=== PATIENT | female | born 1995 | race Caucasian/White ===

== ENCOUNTER → 2016-08-24 | Outpatient (CLI) | payer OTHER ==
--- NOTE | 2016-08-24 11:07 | USB ---
Reason for exam: follow-up at short interval from prior study. History: Family history of breast cancer in aunt. Physical Findings: Nurse Summary: all soft, nodular, movable, pt complains left breast lump x 2 years. Brown discharge x 10 years, doctor aware per patient (nurse ts). US Breast LT Left breast ultrasound including all four quadrants, the retroareolar region and axilla demonstrates a duct vessel at 9 o'clock and a 0.4 x 0.4 x 0.3cm oval, lobular, mixed, vascular lesion too small to characterize at 10 o'clock. These results were verbally communicated with the patient and result sheet given to the patient on 08/24/16. ASSESSMENT: Benign, BI-RAD 2 RECOMMENDATION: Routine screening mammogram of both breasts at age 38. Manage patient on a clinical basis.
== END | disposition home or self-care (01) ==
LOC: RADUSWWP 09:28
PROVIDERS: ATTEND Surgery
DX: N63 Unspecified lump in breast (principal)

== ENCOUNTER → 2016-09-19 | Outpatient (CLI) | payer OTHER ==
--- NOTE | 2016-09-19 14:45 | US ---
EXAMINATION TYPE: US gallbladder DATE OF EXAM: 09/19/2016 2:30 PM COMPARISON: NONE CLINICAL HISTORY: Cholecystitis K80.0. Epigastric pain with nausea EXAM MEASUREMENTS: Liver Length: 14.5 cm Gallbladder Wall: 0.2 cm CBD: 0.3 cm Right Kidney: 10.4 x 3.8 x 5.7 cm Pancreas: wnl Liver: wnl Gallbladder: wnl Evidence for sonographic Vick's sign: No CBD: wnl Right Kidney: wnl No abnormality visualized Results called to Tamica at 's office at time of exam IMPRESSION: No distinct abnormality seen.
== END | disposition home or self-care (01) ==
LOC: RADUSWWP 14:14
PROVIDERS: ATTEND Family Medicine
DX: K81.9 Cholecystitis, unspecified (principal)
CPT/HCPCS: 76705

== ENCOUNTER → 2016-10-12 | Outpatient (CLI) | payer OTHER ==
--- NOTE | 2016-10-12 12:28 | CT ---
EXAMINATION TYPE: CT abdomen pelvis wo con DATE OF EXAM: 10/12/2016 11:28 AM COMPARISON: 01/09/2013 HISTORY: 20-year-old female Patient complains of epigastric pain and nausea. Patient has a history o f IBS. CT DLP: 845 mGycm. Automated exposure control for dose reduction was used. TECHNIQUE: Contiguous axial scanning of the abdomen and pelvis without IV contrast. Coronal and sagit ashley reconstructions performed. FINDINGS: The heart is normal size without pericardial effusion. Lung bases are clear without pleural effusion. There is some residual contrast seen within the lower esophagus that could reflect gastroesophageal r eflux. Noncontrast appearance of the liver, gallbladder, adrenal glands, kidneys, spleen, and pancreas show no gross abnormality. Stable scattered nonenlarged and borderline enlarged mesenteric lymph nodes measuring up to 6 mm. No dilated small bowel, free fluid, or free air. Normal appendix visualized. Oral contrast has progressed to the cecum. There is moderate stool within the right hemicolon. The l eft hemicolon is relatively nondistended. Bladder is nondistended. Multiple pelvic phleboliths. Uterus and ovaries are visualized. There is que stionable circumferential wall thickening of the distal sigmoid and rectum, refer to axial image 74 a nd coronal image 58. The lack of IV contrast limits assessment. Bones: No osseous destructive process. Degenerative disc disease L5-S1. IMPRESSION: 1. There appears to be circumferential wall thickening at the distal sigmoid and rectum. Correlate f or possible nonspecific colitis. Limited due to lack of IV contrast. 2. Moderate stool within the right hemicolon. 3. Oral contrast seen within the lower esophagus; findings may indicate underlying gastroesophageal reflux disease.
== END | disposition home or self-care (01) ==
LOC: RADCTMAIN 09:29
PROVIDERS: ATTEND Family Medicine
DX: R10.9 Unspecified abdominal pain (principal)
CPT/HCPCS: 74176

== ENCOUNTER → 2017-09-24 | Outpatient (CLI) | payer OTHER ==
[2017-09-24 10:19] LABS: Basophils % (A) 0 %; Eosinophils % (A) 1 %; HGB 11.6 gm/dL (11.4-16.0); Lymphocytes % (A) 29 %; MCH 27.7 pg (25.0-35.0); MCHC 33.2 g/dL (31.0-37.0); MCV 83.5 fL (80.0-100.0); Mean Platelet Volume 6.3; Monocytes # (A) 0.2 k/uL (0-1.0); Monocytes % (A) 3 %; Neutrophils # (A) 4.6 k/uL (1.3-7.7); Neutrophils % (A) 66 %; Platelet Count 368 k/uL (150-450); RDW 12.9 % (11.5-15.5)
[2017-09-24 10:47] LABS: ALT 15 U/L (9-52); AST 17 U/L (14-36); Albumin 3.8 g/dL (3.5-5.0); Alkaline Phosphatase 54 U/L (38-126); Anion Gap 10 mmol/L; Blood Urea Nitrogen 6 mg/dL (7-17); Calcium 9.3 mg/dL (8.4-10.2); Carbon Dioxide 27 mmol/L (22-30); Chloride 105 mmol/L (98-107); Glucose 87 mg/dL (74-99); Potassium 3.9 mmol/L (3.5-5.1); Sodium 142 mmol/L (137-145); Total Bilirubin 0.2 mg/dL (0.2-1.3); Total Protein 6.8 g/dL (6.3-8.2)
[2017-09-24 11:04] LABS: T4, Free (Free Thyroxine) 1.03 ng/dL (0.78-2.19)
[2017-09-24 17:12] LABS: Rheumatoid Factor 5 IU/mL (0-15)
[2017-09-24 17:35] LABS: Vitamin D 25 Hydroxy 6.3 ng/mL (30.0-100.0)
[2017-09-25 13:31] LABS: Vitamin B6 9 ug/L (5-50)
[2017-09-27 12:01] LABS: IgG - CSF 1.2 mg/dL (0.0 - 3.4); IgG/Albumin Index (CSF) 0.46 (0.00 - 0.77); Immunoglobulin G 985 mg/dL (700 - 1600)
== END | disposition home or self-care (01) ==
LOC: LABWHC1 09:48
PROVIDERS: ATTEND Nurse Practitioner Acute Care
DX: E55.9 Vitamin D deficiency, unspecified (principal); R41.3 Other amnesia; R53.83 Other fatigue; F44.6 Conversion disorder with sensory symptom or deficit; H46.9 Unspecified optic neuritis
CPT/HCPCS: 36415; 80053; 82040; 82042; 82306; 82607; 82784; 83873; 83916; 84157; 84207; 84439; 84443; 84481; 85025; 86038; 86431; 87476; 88108; 89050

== ENCOUNTER → 2017-09-27 | Outpatient (CLI) | payer OTHER ==
--- NOTE | 2017-09-30 08:23 | MR ---
EXAMINATION TYPE: MR brain wo/w con DATE OF EXAM: 09/27/2017 HISTORY: Headaches, Pt states MS, Gadavist 8.5 COMPARISON: 03/22/2011 TECHNIQUE: Multiplanar, multisequence images of the brain and brainstem is performed without and with IV contras t, utilizing 8.5 mL intravenous Gadavist gadolinium contrast is administered intravenously. Demyelin ating disease protocol with additional Sagittal Flair sequence performed. FINDINGS: T2 Lesions Present : yes. There remains only 1 4 mm T2/FLAIR hyperintense focus within the centrum semiovale of the right frontal lobe as seen on the prior exam of 2010. No new white matter changes ar e appreciated. Approximate Number of Lesions: 1, right Locations Identified : Supratentorial; deep white matter radiating from the corpus callosum on sagitt al images Size of Reference Lesion(s): 1. 0.4 cm x 0.2 cm x 1.0 cm on axial image 22 and sagittal image 19 Enhancing Lesion(s) Present: No Change from Prior: Stable Diffusion weighted images demonstrate no evidence of a recent infarct or other diffusion abnormality. There is no worrisome extra-axial fluid collection. The ventricular system and cisternal spaces ar e normal in size and appearance. The brain volume is age appropriate. Midline structures demonstrate normal morphology. The craniocervical junction appears within normal limits. Post contrast images demonstrate no abnormal enhancement. The dural venous sinuses appear pa tent. The visualized sinuses are clear and the globes are intact. IMPRESSION: Stable single nonenhancing, nonactive, right frontal supratentorial white matter plaques in this patient with known multiple sclerosis in comparison to exam of 2010.
== END | disposition home or self-care (01) ==
LOC: RADMRIMAIN 18:15
PROVIDERS: ATTEND Psychiatry & Neurology Neurology
DX: G35 Multiple sclerosis (principal); R90.82 White matter disease, unspecified; Z88.2 Allergy status to sulfonamides; Z91.018 Allergy to other foods; Z91.013 Allergy to seafood; Z91.09 Other allergy status, other than to drugs and biological substances
CPT/HCPCS: 70553; A9581

== ENCOUNTER → 2017-10-16 | Outpatient (CLI) | payer OTHER ==
--- NOTE | 2017-10-17 15:41 | MR ---
EXAMINATION TYPE: MR lumbar spine wo con DATE OF EXAM: 10/16/2017 COMPARISON: 02/17/2014 HISTORY: Low back pain TECHNIQUE: Multiplanar, multisequence images of the lumbar spine were acquired. FINDINGS: The lumbar spine demonstrates normal vertebral body heights and alignment. Subcentimeter T1 /T2 hyperintense S1 vertebral body hemangioma seen otherwise the bone marrow signal is within normal limits. Disc desiccation is present at L4-L5 and L5-S1. Conus medullaris is unremarkable terminating at L1. L1-L2: Normal disc appearance without desiccation. No herniation, protrusion or disc bulging. No ca nal stenosis is present. Foramina are patent bilaterally. L2-L3: Normal disc appearance without desiccation. No herniation, protrusion or disc bulging. No ca nal stenosis is present. Foramina are patent bilaterally. L3-L4: Normal disc appearance without desiccation. No herniation, protrusion or disc bulging. No ca nal stenosis is present. Foramina are patent bilaterally. L4-L5: There is a small right paracentral annular tear. Again there is a small broad-based disc bulge without focality. No herniation, neural foraminal stenosis or spinal canal stenosis. L5-S1: There is a similar appearing small right paracentral disc herniation within the lateral recess . This is superimposed upon a broad-based disc bulge and results in mild right neural foraminal narro wing. Left neural foramen and spinal canal are patent. IMPRESSION: 1. Unchanged small right paracentral disc herniation resulting in mild right neural foraminal narrowi ng. 2. No evidence of vertebral body malalignment, height loss, or spinal canal stenosis. 3. Mild degenerative disc disease with annular tear at L4-L5 without focal herniation, neural foramin al stenosis or spinal canal stenosis.
== END | disposition home or self-care (01) ==
LOC: RADMRIMAIN 19:18
PROVIDERS: ATTEND Psychiatry & Neurology Neurology
DX: M99.73 Connective tissue and disc stenosis of intervertebral foramina of lumbar region (principal); M51.26 Other intervertebral disc displacement, lumbar region; M51.36 Other intervertebral disc degeneration, lumbar region; M53.86 Other specified dorsopathies, lumbar region; Z88.2 Allergy status to sulfonamides; Z91.013 Allergy to seafood; Z91.048 Other nonmedicinal substance allergy status; Z91.09 Other allergy status, other than to drugs and biological substances
CPT/HCPCS: 72148

== ENCOUNTER → 2017-11-22 | Outpatient (CLI) | payer OTHER ==
[2017-11-22 14:04] LABS: T4, Free (Free Thyroxine) 1.04 ng/dL (0.78-2.19)
[2017-11-23 11:23] LABS: Vitamin D 25 Hydroxy 39.1 ng/mL (30.0-100.0)
== END | disposition home or self-care (01) ==
LOC: LABWHC1 13:02
PROVIDERS: ATTEND Nurse Practitioner Acute Care
DX: E55.9 Vitamin D deficiency, unspecified (principal); R41.3 Other amnesia
CPT/HCPCS: 36415; 82306; 82607; 84439; 84443; 84481

== ENCOUNTER 2018-03-16 02:11 | Emergency (ER) | payer OTHER ==
[2018-03-16] MEDS ORDERED: SODIUM CHLORIDE 0.9% 1,000 ML IV STA ×2 (02:38→03:45)
[2018-03-16 03:14] LABS: Basophils % (A) 0 %; Eosinophils # (A) 0.1 k/uL (0-0.7); Eosinophils % (A) 1 %; HCT 34.9 % (34.0-46.0); HGB 11.7 gm/dL (11.4-16.0); Lymphocytes % (A) 24 %; MCH 27.4 pg (25.0-35.0); MCHC 33.4 g/dL (31.0-37.0); MCV 82.1 fL (80.0-100.0); Mean Platelet Volume 6.2; Monocytes # (A) 0.4 k/uL (0-1.0); Monocytes % (A) 5 %; Neutrophils # (A) 5.7 k/uL (1.3-7.7); Neutrophils % (A) 68 %; Platelet Count 386 k/uL (150-450); RBC 4.26 m/uL (3.80-5.40); RDW 13.9 % (11.5-15.5); WBC 8.4 k/uL (3.8-10.6)
--- NOTE | 2018-03-16 03:16 | ED ---
Abdominal Pain HPI - General Chief Complaint: Abdominal Pain Stated Complaint: ABD PAIN Time Seen by Provider: 03/16/18 02:29 Source: patient, family, RN notes reviewed Mode of arrival: ambulatory Limitations: no limitations - History of Present Illness Initial Comments: This is a 22-year-old female who presents to the emergency department with chief complaint of abdominal pain and diarrhea. Patient states that one month ago she was started on clindamycin for a tooth infection. She states that since that time she has had diarrhea. She states that then she was given Flagyl to help with the diarrhea but this did not clear it up. She states that her primary care provider I recommended probiotics the patient continued to have diarrhea. Patient states that on Sunday she developed generalized abdominal pain that she describes as cramping in nature. She states that this occurs prior to having a bowel movement and after eating. She states that on Sunday her diarrhea became excessively watery and yellow in color. She states that over the past couple of days she has also had intermittent fevers but has been taking ibuprofen. Denies chest pain or shortness of breath, nausea or vomiting, dizziness or headache. Patient does report a history of IBS. - Related Data Home Medications Medication Instructions Recorded Confirmed Loratadine [Claritin] 10 mg PO DAILY PRN 08/29/15 03/16/18 Levonorgestrel-Ethin Estradiol 1 tab PO DAILY 11/23/15 03/16/18 [[place]ora-28 Tablet] Previous Rx's Medication Instructions Recorded Levothyroxine Sodium [Synthroid] 25 mcg PO DAILY@0630 tab 11/26/15 buPROPion XL [Wellbutrin XL] 150 mg PO DAILY #30 tab.er.24h 11/26/15 busPIRone HCl [Buspar] 15 mg PO BID #60 tab 11/26/15 Cyclobenzaprine [Flexeril] 10 mg PO TID PRN #20 tablet 01/04/16 Allergies Allergy/AdvReac Type Severity Reaction Status Date / Time sulfamethazine Allergy Mild Rash/Hives Verified 03/16/18 02:17 [Sulfamethazine] Sulfa (Sulfonamide Allergy Unknown Verified 03/16/18 02:17 Antibiotics) Review of Systems ROS Statement: Those systems with pertinent positive or pertinent negative responses have been documented in the HPI. ROS Other: All systems not noted in ROS Statement are negative. Past Medical History Past Medical History: GERD/Reflux, Thyroid Disorder Additional Past Medical History / Comment(s): Chronic low back pain, irritable bowel syndrome, gastroesophageal reflux disease, carpal tunnel syndrome, overactive bladder, hypothyroidism. History of Any Multi-Drug Resistant Organisms: None Reported Past Surgical History: No Surgical Hx Reported Additional Past Surgical History / Comment(s): carpal tunnel surg right hand, EGD with Dr. Haji Past Psychological History: ADD/ADHD, Anxiety, Depression Smoking Status: Current some day smoker Past Alcohol Use History: Occasional Past Drug Use History: None Reported - Past Family History Father Additional Family Medical History / Comment(s): Father is alive at age 55 with history of depression, anxiety, bipolar Mother Additional Family Medical History / Comment(s): Mother is alive at age 55 with hypoglycemia and brain aneurysm. Brother(s) Additional Family Medical History / Comment(s): She has 2 brothers and one had successfully committed suicide. Sister(s) Additional Family Medical History / Comment(s): She has 2 sisters with no major medical problems. General Exam - General Exam Comments Initial Comments: General: Awake and alert, well-developed; in no apparent distress. HEENT: Head atraumatic, normocephalic. Pupils are equal, round and reactive to light. Extraocular movements intact. Oropharynx moist without erythema or exudate. Neck: Supple. Normal ROM. Cardiovascular: Regular rate and rhythm. No murmurs, rubs or gallops. Chest symmetrical. Respiratory: Lungs clear to auscultation bilaterally. No wheezes, rales or rhonchi. Normal respiratory effort with no use of accessory muscles. Abdomen: Soft, non-distended. Generalized mild tenderness on palpation. No rigidity, rebound or guarding. Normal bowel sounds in all 4 quadrants. Musculoskeletal: Normal ROM, no tenderness bilateral upper and lower extremities. Ambulating normally. Skin: [place], warm and dry without rashes or lesions. Neurological: Alert and oriented x3. CN II-XII grossly intact. Speech is fluent and answers are appropriate. No focal neuro deficits. Psychiatric: Normal mood and affect. No overt signs of depression or anxiety noted. Limitations: no limitations Course Vital Signs 03/16/18 02:13 Temperature 98.5 F Pulse Rate 82 Respiratory 20 Rate Blood Pressure 110/68 O2 Sat by Pulse 100 Oximetry Medical Decision Making - Medical Decision Making This is a 22-year-old female who presents to the emergency department with chief complaint of abdominal pain and diarrhea. Patient reports diarrhea for approximately one month with a more watery and yellow in appearance of diarrhea starting on Sunday. Patient reports generalized abdominal pain that started on Sunday. She reports intermittent fevers. On physical examination, patient does not appear acutely ill. Abdomen is soft with generalized tenderness on palpation. No localized tenderness. No rigidity or guarding. Vital signs are stable and patient is afebrile. CBC and CMP reveal no acute abnormalities. Testing of stool for Clostridium difficile, stool culture and ova and parasites was ordered, however patient was unable to provide a stool sample. Recommended follow-up with her primary care provider for outpatient stool studies if diarrhea is persistent. UA revealed 4+ ketones. Patient was given 2 L of fluid. No signs of infection. Vital signs have been stable and she is in no acute distress. She will be discharged home at this time. Patient is in agreement with plan and voices understanding. All questions were answered. - Lab Data Result diagrams: 03/16/18 02:54 03/16/18 02:54 Lab Results 03/16/18 03/16/18 03/16/18 Range/Units 02:54 02:54 03:35 WBC 8.4 (3.8-10.6) k/uL RBC 4.26 (3.80-5.40) m/uL Hgb 11.7 (11.4-16.0) gm/dL Hct 34.9 (34.0-46.0) % MCV 82.1 (80.0-100.0) fL MCH 27.4 (25.0-35.0) pg MCHC 33.4 (31.0-37.0) g/dL RDW 13.9 (11.5-15.5) % Plt Count 386 (150-450) k/uL Neutrophils % 68 % Lymphocytes % 24 % Monocytes % 5 % Eosinophils % 1 % Basophils % 0 % Neutrophils # 5.7 (1.3-7.7) k/uL Lymphocytes # 2.0 (1.0-4.8) k/uL Monocytes # 0.4 (0-1.0) k/uL Eosinophils # 0.1 (0-0.7) k/uL Basophils # 0.0 (0-0.2) k/uL Sodium 138 (137-145) mmol/L Potassium 3.8 (3.5-5.1) mmol/L Chloride 105 (98-107) mmol/L Carbon Dioxide 24 (22-30) mmol/L Anion Gap 9 mmol/L BUN 6 L (7-17) mg/dL Creatinine 0.70 (0.52-1.04) mg/dL Est GFR (CKD-EPI)AfAm >90 (>60 ml/min/1.73 sqM) Est GFR (CKD-EPI)NonAf >90 (>60 ml/min/1.73 sqM) Glucose 76 (74-99) mg/dL Calcium 9.0 (8.4-10.2) mg/dL Total Bilirubin 0.3 (0.2-1.3) mg/dL AST 20 (14-36) U/L ALT 33 (9-52) U/L Alkaline Phosphatase 41 (38-126) U/L Total Protein 6.6 (6.3-8.2) g/dL Albumin 3.8 (3.5-5.0) g/dL Amylase 79 (30-110) U/L Lipase 248 (23-300) U/L Urine Color Yellow Urine Appearance Clear (Clear) Urine pH 5.5 (5.0-8.0) Ur Specific [place] 1.018 (1.001-1.035) Urine Protein Trace H (Negative) Urine Glucose (UA) Negative (Negative) Urine Ketones 4+ H (Negative) Urine Blood Small H (Negative) Urine Nitrite Negative (Negative) Urine Bilirubin Negative (Negative) Urine Urobilinogen <2.0 (<2.0) mg/dL Ur Leukocyte Esterase Negative (Negative) Urine RBC 4 (0-5) /hpf Urine WBC 1 (0-5) /hpf Ur Squamous Epith Cells 1 (0-4) /hpf Urine Mucus Many H (None) /hpf Urine HCG, Qual (Not Detectd) 03/16/18 Range/Units 03:35 WBC (3.8-10.6) k/uL RBC (3.80-5.40) m/uL Hgb (11.4-16.0) gm/dL Hct (34.0-46.0) % MCV (80.0-100.0) fL MCH (25.0-35.0) pg MCHC (31.0-37.0) g/dL RDW (11.5-15.5) % Plt Count (150-450) k/uL Neutrophils % % Lymphocytes % % Monocytes % % Eosinophils % % Basophils % % Neutrophils # (1.3-7.7) k/uL Lymphocytes # (1.0-4.8) k/uL Monocytes # (0-1.0) k/uL Eosinophils # (0-0.7) k/uL Basophils # (0-0.2) k/uL Sodium (137-145) mmol/L Potassium (3.5-5.1) mmol/L Chloride (98-107) mmol/L Carbon Dioxide (22-30) mmol/L Anion Gap mmol/L BUN (7-17) mg/dL Creatinine (0.52-1.04) mg/dL Est GFR (CKD-EPI)AfAm (>60 ml/min/1.73 sqM) Est GFR (CKD-EPI)NonAf (>60 ml/min/1.73 sqM) Glucose (74-99) mg/dL Calcium (8.4-10.2) mg/dL Total Bilirubin (0.2-1.3) mg/dL AST (14-36) U/L ALT (9-52) U/L Alkaline Phosphatase (38-126) U/L Total Protein (6.3-8.2) g/dL Albumin (3.5-5.0) g/dL Amylase (30-110) U/L Lipase (23-300) U/L Urine Color Urine Appearance (Clear) Urine pH (5.0-8.0) Ur Specific [place] (1.001-1.035) Urine Protein (Negative) Urine Glucose (UA) (Negative) Urine Ketones (Negative) Urine Blood (Negative) Urine Nitrite (Negative) Urine Bilirubin (Negative) Urine Urobilinogen (<2.0) mg/dL Ur Leukocyte Esterase (Negative) Urine RBC (0-5) /hpf Urine WBC (0-5) /hpf Ur Squamous Epith Cells (0-4) /hpf Urine Mucus (None) /hpf Urine HCG, Qual Not Detected (Not Detectd) Disposition Clinical Impression: Acute diarrhea, Abdominal pain Disposition: HOME SELF-CARE Condition: Good Instructions: Acute Diarrhea (ED), Abdominal Pain (ED) Additional Instructions: If diarrhea persists, please follow-up with your primary care provider for outpatient stool studies. Please follow up with primary care provider within 1- 2 days. Return to emergency department if symptoms should worsen or any concerns arise. Is patient prescribed a controlled substance at d/c from ED?: No Referrals: Eleuterio Alberto DO [Primary Care Provider] - 1-2 days Time of Disposition: 04:07
[2018-03-16 03:18] LABS: ALT 33 U/L (9-52); AST 20 U/L (14-36); Albumin 3.8 g/dL (3.5-5.0); Alkaline Phosphatase 41 U/L (38-126); Amylase 79 U/L (30-110); Anion Gap 9 mmol/L; Blood Urea Nitrogen 6 mg/dL (7-17); Carbon Dioxide 24 mmol/L (22-30); Chloride 105 mmol/L (98-107); Glucose 76 mg/dL (74-99); Lipase 248 U/L (23-300); Potassium 3.8 mmol/L (3.5-5.1); Sodium 138 mmol/L (137-145); Total Bilirubin 0.3 mg/dL (0.2-1.3); Total Protein 6.6 g/dL (6.3-8.2)
[2018-03-16 03:44] LABS: Appearance,Urine Clear (Clear); Bilirubin,Urine Negative (Negative); Blood,Urine Small (Negative); Color,Urine Yellow; Glucose,Urine (UA) Negative (Negative); Ketones,Urine 4+ (Negative); Leukocyte Esterase,Urine Negative (Negative); Mucus,Urine Many /hpf; Nitrite,Urine Negative (Negative); PH, Urine 5.5 (5.0-8.0); Protein,Urine Trace (Negative); RBC,Urine 4 /hpf (0-5); Specific Gravity,Urine 1.018 (1.001-1.035); Squamous Epithelial Cell,Urine 1 /hpf (0-4); Urobilinogen,Urine <2.0 mg/dL (<2.0); WBC,Urine 1 /hpf (0-5)
[2018-03-16] MEDS ORDERED: DICYCLOMINE 20 MG TAB PO STA (03:47)
[2018-03-16 04:26] VITALS: BP 112/68; PULSE 84; RESP 18; TEMP 97.9
== END 2018-03-16 04:26 | disposition home or self-care (01) ==
LOC: EC 02:11
DX: R19.7 Diarrhea, unspecified (principal); R10.84 Generalized abdominal pain; R50.9 Fever, unspecified; R82.4 Acetonuria; F17.200 Nicotine dependence, unspecified, uncomplicated; Z79.3 Long term (current) use of hormonal contraceptives; Z88.2 Allergy status to sulfonamides
CPT/HCPCS: 36415; 80053; 81001; 81025; 82150; 83690; 85025; 96360; 96361; 99284

== ENCOUNTER → 2018-03-18 | Outpatient (CLI) | payer OTHER | END | disposition home or self-care (01) | LOC: LABWHC1 14:39 | PROVIDERS: ATTEND Family Medicine | DX: R19.7 Diarrhea, unspecified (principal) | CPT/HCPCS: 87045; 87046; 87324; 87328; 87329 ==

== ENCOUNTER → 2018-08-20 | Outpatient (CLI) | payer OTHER | END | disposition home or self-care (01) | LOC: LABWHC1 15:08 | PROVIDERS: ATTEND Nurse Practitioner Acute Care | DX: Z01.812 Encounter for preprocedural laboratory examination (principal) | CPT/HCPCS: 36415; 82565; 84520 ==

== ENCOUNTER → 2018-09-11 | Outpatient (CLI) | payer OTHER ==
--- NOTE | 2018-09-11 13:59 | XR ---
EXAMINATION TYPE: XR foot complete LT DATE OF EXAM: 09/11/2018 CLINICAL HISTORY: pain TECHNIQUE: Frontal, lateral and oblique images of the left foot are obtained. COMPARISON: None. FINDINGS: Calcific densities noted adjacent to the tarsal cuboid may reflect unfused ossicles versus small avulsion/chip fractures difficult to exclude. Correlate clinically with point tenderness. The j oint spaces appear within normal limits. The overlying soft tissue appears unremarkable. IMPRESSION: Calcific densities noted adjacent to the tarsal cuboid may reflect unfused ossicles versus small avul ailin/chip fractures difficult to exclude. Correlate clinically with point tenderness.
== END | disposition home or self-care (01) ==
LOC: RADXRMAIN 13:37
PROVIDERS: ATTEND Family Medicine
DX: M85.872 Other specified disorders of bone density and structure, left ankle and foot (principal); M79.672 Pain in left foot

== ENCOUNTER 2018-10-03 13:26 | Day surgery (SDC) | payer OTHER ==
[2018-10-02 13:24] VITALS: BMI 39.0
[~2018-10-03 13:26] MED LIST: LACTATED RINGERS 1,000 ML IV SCH; LIDOCAINE 1% 20 ML VIAL (10MG/ML) FOR IV START INTRADERMA PRN
[2018-10-03 13:51] VITALS: RESP 16; TEMP 98.2
[2018-10-03] MEDS ORDERED: NA PHOS,M-B/NA PHOS,DI-BA 133 ML ENEMA RECTAL ONE (14:09)
[2018-10-03] MEDS ORDERED: PROPOFOL 10 MG/ML 20 ML VIAL IV ONE (14:56)
[2018-10-03] MEDS ORDERED: MIDAZOLAM 2 MG/2 ML VIAL ONE (14:56)
--- NOTE | 2018-10-03 15:12 | P.PCN ---
Date of Procedure: 10/03/18 Procedure(s) Performed: PREOPERATIVE DIAGNOSIS: Rectal bleeding POSTOPERATIVE DIAGNOSIS: Rectal polypoid mass PROCEDURE: Flexible sigmoidoscopy with biopsy ANESTHESIA: MAC SURGEON: Deven Haji M.D. SPECIMENS: Rectal polypoid mass ENDOSCOPIC PROCEDURE: The patient was placed on the endoscopy table in the left decubitus position. The Olympus colonoscope was inserted into the anus and passed under direct visualization to the sigmoid colon. The sigmoid appeared normal. In the rectum there was noted to be an obvious polypoid mass involving approximately one half of the circumference of the bowel. This was present from about 6-12 cm. This was nonulcerated. Numerous biopsies took place of this l esion. It was somewhat indurated to palpation. The remainder of the rectum appeared normal. This was palpable on exam digitally. The patient was taken to the recovery room in stable condition per anesthesia guidelines. RECOMMENDATIONS: Wait biopsy results. Follow-up one week.
[2018-10-03 15:41] VITALS: BP 100/61; PULSE 68
== END 2018-10-03 16:02 | disposition home or self-care (01) ==
LOC: ORWHC2ENDO 13:26
PROVIDERS: ATTEND Surgery
DX: D12.8 Benign neoplasm of rectum (principal); E03.9 Hypothyroidism, unspecified; K21.9 Gastro-esophageal reflux disease without esophagitis; K58.9 Irritable bowel syndrome, unspecified; M79.7 Fibromyalgia; F41.9 Anxiety disorder, unspecified; F32.9 Major depressive disorder, single episode, unspecified; F17.200 Nicotine dependence, unspecified, uncomplicated; Z91.013 Allergy to seafood; Z88.2 Allergy status to sulfonamides; Z79.899 Other long term (current) drug therapy; Z91.012 Allergy to eggs; Z79.890 Hormone replacement therapy; Z91.018 Allergy to other foods
CPT/HCPCS: 81025; 88305; 45331; J2250; J2704

== ENCOUNTER → 2018-10-31 | Outpatient (CLI) | payer OTHER ==
--- NOTE | 2018-10-31 19:20 | XR ---
EXAMINATION TYPE: XR hand complete RT DATE OF EXAM: 10/31/2018 CLINICAL HISTORY: Pain after fall injury. TECHNIQUE: Frontal, lateral and oblique images of the right hand are obtained. COMPARISON: None. FINDINGS: There is no acute fracture/dislocation evident in the right hand. The joint spaces in the right hand appear within normal limits. The overlying soft tissue appears unremarkable. IMPRESSION: There is no acute fracture or dislocation in the right hand.
--- NOTE | 2018-10-31 19:21 | XR ---
EXAMINATION TYPE: XR foot complete LT DATE OF EXAM: 10/31/2018 CLINICAL HISTORY: Pain. TECHNIQUE: Frontal, lateral, and oblique images of the left foot are obtained. COMPARISON: None FINDINGS: There is no acute fracture/dislocation evident in the left foot. There is flexion in the s econd through fifth toes. There is varus positioning distal fourth and fifth toes. Accessory ossicle s near base of cuboid bone are present. The overlying soft tissue appears unremarkable. IMPRESSION: As above.
== END | disposition home or self-care (01) ==
LOC: RADXRMAIN 15:29
PROVIDERS: ATTEND Family Medicine
DX: M21.272 Flexion deformity, left ankle and toes (principal); M79.641 Pain in right hand

== ENCOUNTER → 2019-02-20 | Outpatient (CLI) | payer OTHER | END | disposition home or self-care (01) | LOC: LABWHC1 15:22 | PROVIDERS: ATTEND Nurse Practitioner Acute Care | DX: I49.9 Cardiac arrhythmia, unspecified (principal) | CPT/HCPCS: 36415; 93005 ==

== ENCOUNTER → 2019-02-20 | Outpatient (CLI) | payer OTHER ==
--- NOTE | 2019-02-21 07:32 | US ---
EXAMINATION TYPE: US pelvis complete transvag DATE OF EXAM: 02/20/2019 COMPARISON: CT dated 10/12/2016 CLINICAL HISTORY: R10.2 Pelvic Pain. TECHNIQUE: Transvaginal (TV) and Transabdominal (TA) . Transabdominal sonographic images of the pel vis were acquired. Transvaginal sonographic images were medically necessary to better assess the fol lowing anatomy: ovaries Date of LMP: 02/01/2019 EXAM MEASUREMENTS: Uterus: 6.3 x 2.4 x 4.0 cm Endometrial Stripe: 0.3 cm Right Ovary: 2.9 x 1.1 x 2.7 cm Left Ovary: 1.7 x 1.0 x 2.1 cm 1. Uterus: Anteverted wnl 2. Endometrium: measures 0.3 cm 3. Right Ovary: wnl as visualized 4. Left Ovary: wnl as visualized 5. Bilateral Adnexa: extensive bowel gas noted 6. Posterior cul-de-sac: no free fluid IMPRESSION: Unremarkable pelvic ultrasound.
== END | disposition home or self-care (01) ==
LOC: RADUSWWP 14:36
PROVIDERS: ATTEND Obstetrics & Gynecology
DX: R10.2 Pelvic and perineal pain (principal)
CPT/HCPCS: 76830; 76856

== ENCOUNTER → 2020-03-25 | Outpatient (CLI) | payer OTHER ==
--- NOTE | 2020-03-25 14:10 | US ---
EXAMINATION TYPE: US pelvic complete plus Dopplers DATE OF EXAM: 03/25/2020 COMPARISON: 02/20/2019 CLINICAL HISTORY: 24-year-old female R10.2 pelvic pain. Intermittent perineal radiating up to left pe lvis especially after intercourse; G0 TECHNIQUE: Transabdominal (TA). Transabdominal sonographic images of the pelvis were acquired. Date of LMP: 03/18/20 FINDINGS: EXAM MEASUREMENTS: Uterus: 6.9 x 4.5 x 2.5 cm Endometrial Stripe: 0.3 cm Right Ovary: 2.4 x 1.9 x 1.3 cm Left Ovary: 3.0 x 2.6 x 1.9 cm 1. Uterus: Anteverted and otherwise wnl 2. Endometrium: thickness is wnl for Day 8LMP 3. Right Ovary: wnl 4. Left Ovary: multiple follicles seen with largest follicular cyst = 1.1 x 1.0 x 1.0cm Spectral, color and waveform Doppler imaging shows good arterial and venous flow within the ovaries ; there is no evidence for ovarian torsion. Some superimposed waveforms are demonstrated. 5. Bilateral Adnexa: wnl 6. Posterior cul-de-sac: wnl IMPRESSION: A 1.1 cm dominant follicle within the left ovary. No sonographic evidence for ovarian torsion. Endome trial stripe measured at 3 mm.
== END | disposition home or self-care (01) ==
LOC: RADUSWWP 13:29
PROVIDERS: ATTEND Obstetrics & Gynecology
DX: N83.8 Other noninflammatory disorders of ovary, fallopian tube and broad ligament (principal)
CPT/HCPCS: 76856

== ENCOUNTER → 2020-09-10 | Outpatient (CLI) | payer OTHER ==
--- NOTE | 2020-09-10 15:08 | XR ---
EXAMINATION TYPE: XR hand complete bilateral DATE OF EXAM: 09/10/2020 CLINICAL HISTORY: pain TECHNIQUE: Frontal, lateral images of the bilateral hands are obtained. COMPARISON: None. FINDINGS: There is no acute fracture/dislocation evident. The joint spaces appear within normal limi ts. The overlying soft tissue appears unremarkable. IMPRESSION: There is no acute fracture or dislocation ICD 10 NO FRACTURE, INITIAL EVALUATION
== END | disposition home or self-care (01) ==
LOC: RADXRMAIN 14:10
PROVIDERS: ATTEND Family Medicine
DX: M79.642 Pain in left hand (principal); M79.641 Pain in right hand

== ENCOUNTER → 2021-03-01 | Outpatient (CLI) | payer OTHER ==
--- NOTE | 2021-03-01 16:51 | US ---
EXAMINATION TYPE: US pelvis complete DATE OF EXAM: 03/01/2021 COMPARISON: NONE CLINICAL HISTORY: 25-year-old female R10.2 PELVIC PAIN. Intermittent pelvic pain x couple years TECHNIQUE: Transabdominal sonographic images of the pelvis were acquired. Date of LMP: 02/16/2021 FINDINGS: EXAM MEASUREMENTS: Uterus: 7.5 x 3.2 x 4.7 cm Endometrial Stripe: 0.8 cm Right Ovary: 3.4 x 1.8 x 2.2 cm Left Ovary: 3.2 x 1.9 x 2.9 cm 1. Uterus: anteverted 2. Endometrium: wnl 3. Right Ovary: 2.2cm cystic area 4. Left Ovary: 1.8cm cystic area 5. Bilateral Adnexa: wnl 6. Posterior cul-de-sac: wnl IMPRESSION: 1. A 2.2 cm dominant follicle or functional cyst in the right ovary and 1.8 cm within the left ovary. 2. Otherwise, no specific abnormality seen on transabdominal scanning.
== END | disposition home or self-care (01) ==
LOC: RADUSWWP 14:48
PROVIDERS: ATTEND Obstetrics & Gynecology
DX: N83.201 Unspecified ovarian cyst, right side (principal); N83.202 Unspecified ovarian cyst, left side
CPT/HCPCS: 76856

== ENCOUNTER → 2021-04-29 | Outpatient (CLI) | payer OTHER ==
[2021-04-29 20:49] LABS: HCT 40.6 % (37.2-46.3); HGB 13.6 g/dL (12.0-15.0); MCH 31.5 pg (27.0-32.0); MCHC 33.5 g/dL (32.0-37.0); Mean Platelet Volume 10.2 fL (9.5-12.2); Platelet Count 324 X 10*3/uL (140-440); RBC 4.32 X 10*6/uL (4.10-5.20); RDW 12.7 % (11.5-14.5); WBC 9.01 X 10*3/uL (4.50-10.00)
[2021-04-30 19:57] LABS: African American GFR (CKD) 180.3 (60.0-200.0); Albumin 4.4 g/dL (3.8-4.9); Albumin/Globulin Ratio 1.77 (1.60-3.17); Anion Gap 14.5 mmol/L (4.00-12.00); BUN/Creat Ratio 19.12 Ratio (12.00-20.00); Blood Urea Nitrogen 5.9 mg/dL (9.0-27.0); Calcium 9.4 mg/dL (8.7-10.3); Carbon Dioxide 21.9 mmol/L (21.6-31.8); Globulin 2.5 g/dL (1.6-3.3); Non-African American GFR(CKD) 155.6 (60.0-200.0); Potassium 3.9 mmol/L (3.5-5.5); T4, Free (Free Thyroxine) 1.46 ng/dL (0.800-1.800); Total Bilirubin 0.3 mg/dL (0.30-1.20); Total Protein 6.9 g/dL (6.2-8.2)
== END | disposition home or self-care (01) ==
LOC: LABWHC1 13:23
PROVIDERS: ATTEND Family Medicine
DX: T14.8XXA Other injury of unspecified body region, initial encounter (principal); K21.9 Gastro-esophageal reflux disease without esophagitis; B35.4 Tinea corporis; M79.642 Pain in left hand; M79.641 Pain in right hand; R63.4 Abnormal weight loss; R20.0 Anesthesia of skin; X58.XXXA Exposure to other specified factors, initial encounter
CPT/HCPCS: 36415; 80053; 81241; 82306; 82607; 83735; 84439; 84443; 85027

== ENCOUNTER 2021-05-27 15:53 | Emergency (ER) | payer OTHER ==
[2021-05-27] MEDS ORDERED: SODIUM CHLORIDE 0.9% 500 ML 500 ML IV STA (16:40)
--- NOTE | 2021-05-27 16:52 | ED ---
General Adult HPI - General Chief complaint: Dizziness Stated complaint: dizziness Time Seen by Provider: 05/27/21 16:30 Source: patient Mode of arrival: ambulatory Limitations: no limitations - History of Present Illness Initial comments: Patient is a 25-year-old female history of thyroid disease, presenting to the emergency Department with complaints of fatigue, dizziness over the past couple weeks. She states it feels like its getting worse over the past few days. She saw her doctor last month for similar complaints, he told her she was probably dehydrated. She does admit to [facility], occasional mushroom use. She denies any chest pain or shortness of breath, no abdominal pain. She does have some intermittent nausea. She states her diarrhea is really limited secondary to IBS, she mainly eats chicken and potatoes. He does drink a lot of water. She denies being but states "there is always a chance." She states the dizziness seems to be worse when she goes from a sitting to standing position. Patient denies any fevers or chills, no cough or congestion. She is no further complaints. Her vitals are stable upon arrival. - Related Data Home Medications Medication Instructions Recorded Confirmed Cholecalciferol [Vitamin D3] 1,000 unit PO DAILY 10/02/18 05/27/21 Omeprazole 20 mg PO DAILY 10/02/18 05/27/21 Fexofenadine HCl [Philomena Allergy] 180 mg PO DAILY 05/27/21 05/27/21 Glucosamine Sulfate 500 mg PO DAILY 05/27/21 05/27/21 Levothyroxine Sodium [Synthroid] 75 mcg PO DAILY 05/27/21 05/27/21 Multivitamins, Thera [Multivitamin 1 tab PO DAILY 05/27/21 05/27/21 (formulary)] Nystatin 100,000Unit/gm Cream 1 applic TOPICAL DAILY PRN 05/27/21 05/27/21 [Mycostatin Cream] Tiotropium 18 Mcg/Puff [Spiriva] 1 puff INHALATION RT-DAILY 05/27/21 05/27/21 Allergies Allergy/AdvReac Type Severity Reaction Status Date / Time sulfamethazine Allergy Mild Rash/Hives Verified 05/27/21 17:38 [Sulfamethazine] Sulfa (Sulfonamide Allergy Rash/Hives Verified 05/27/21 17:38 Antibiotics) Review of Systems ROS Statement: Those systems with pertinent positive or pertinent negative responses have been documented in the HPI. ROS Other: All systems not noted in ROS Statement are negative. Past Medical History Past Medical History: GERD/Reflux, Thyroid Disorder Additional Past Medical History / Comment(s): Chronic low back pain, irritable bowel syndrome, carpal tunnel syndrome, overactive bladder, hypothyroidism. History of Any Multi-Drug Resistant Organisms: None Reported Past Surgical History: Orthopedic Surgery Additional Past Surgical History / Comment(s): BILAT CTR, COLONOSCOPY, EGD Past Anesthesia/Blood Transfusion Reactions: Motion Sickness Past Psychological History: ADD/ADHD, Anxiety, Depression Smoking Status: Current every day smoker Past Alcohol Use History: Rare Past Drug Use History: None Reported, Marijuana - Past Family History Father Additional Family Medical History / Comment(s): Father is alive at age 55 with history of depression, anxiety, bipolar Mother Additional Family Medical History / Comment(s): Mother is alive at age 55 with hypoglycemia and brain aneurysm. Brother(s) Family Medical History: Cancer Additional Family Medical History / Comment(s): She has 2 brothers ONE HAD THROAT CANCER AND one had successfully committed suicide. Sister(s) Additional Family Medical History / Comment(s): She has 2 sisters with no major medical problems. General Exam - General Exam Comments Initial Comments: GENERAL: Patient is well-developed and well-nourished. Patient is nontoxic and in no acute distress. HEAD: Atraumatic, normocephalic. EYES: Pupils equal round and reactive to light, extraocular movements intact, sclera anicteric, conjunctiva are normal. Eyelids were unremarkable. ENT: Nares patent, oropharynx clear without exudates. Moist mucous membranes. NECK: Normal range of motion, supple without lymphadenopathy or JVD. LUNGS: Unlabored respirations. Breath sounds clear to auscultation bilaterally and equal. No wheezes rales or rhonchi. HEART: Regular rate and rhythm without murmurs, rubs or gallops. ABDOMEN: Soft, nontender, normoactive bowel sounds. No guarding, no rebound. No masses appreciated. MUSCULOSKELETAL: Normal extremities with adequate strength and normal range of motion, no pitting or edema. No clubbing or cyanosis. NEUROLOGICAL: Patient is alert and oriented x 3. Motor and sensory are also intact. Cranial nerves II through XII grossly intact. Symmetrical smile. Normal speech, normal gait. PSYCH: Normal mood, normal affect. SKIN: Warm, Dry, normal turgor, no rashes or lesions noted. Limitations: no limitations Course Vital Signs 05/27/21 05/27/21 16:11 18:56 Temperature 97.7 F 98.1 F Pulse Rate 76 65 Respiratory 16 18 Rate Blood Pressure 93/67 107/56 O2 Sat by Pulse 99 100 Oximetry EKG Findings - EKG Comments: EKG Findings:: Normal sinus rhythm, normal ECG, no signs of acute process. Ventricular rate 64, AL interval 136, QT 390. Medical Decision Making - Medical Decision Making Patient is a 25-year-old female here with fatigue, dizziness over the past couple weeks. Symptoms worsen last couple days, vitals are stable. Exam shows no abnormal findings. EKG reveals no acute process. Patient's labs revealed no acute abnormality. Patient was given some fluids and has been resting comfortably. She has been asymptomatic here. Patient did arrive was slightly low blood pressure 93/67, prior to discharge it was rechecked, 107/56. I feel that this could be contributing to her lightheadedness on position changes. I recommended following up with her doctor regaining hypotension. She is agreeable to this. She is stable for discharge. Return parameters were discus sed with her and she verbalized understanding. Case discussed with Dr. Erwin. - Lab Data Result diagrams: 05/27/21 17:05 05/27/21 17:05 Lab Results 05/27/21 05/27/21 05/27/21 Range/Units 17:05 17:05 17:05 WBC 11.4 H (3.8-10.6) k/uL RBC 4.30 (3.80-5.40) m/uL Hgb 13.8 (11.4-16.0) gm/dL Hct 39.9 (34.0-46.0) % MCV 92.7 (80.0-100.0) fL MCH 32.0 (25.0-35.0) pg MCHC 34.5 (31.0-37.0) g/dL RDW 12.0 (11.5-15.5) % Plt Count 376 (150-450) k/uL MPV 6.8 Neutrophils % 70 % Lymphocytes % 25 % Monocytes % 3 % Eosinophils % 1 % Basophils % 0 % Neutrophils # 8.0 H (1.3-7.7) k/uL Lymphocytes # 2.9 (1.0-4.8) k/uL Monocytes # 0.3 (0-1.0) k/uL Eosinophils # 0.1 (0-0.7) k/uL Basophils # 0.0 (0-0.2) k/uL Sodium 138 (137-145) mmol/L Potassium 4.2 (3.5-5.1) mmol/L Chloride 104 (98-107) mmol/L Carbon Dioxide 26 (22-30) mmol/L Anion Gap 8 mmol/L BUN 9 (7-17) mg/dL Creatinine 0.62 (0.52-1.04) mg/dL Est GFR (CKD-EPI)AfAm >90 (>60 ml/min/1.73 sqM) Est GFR (CKD-EPI)NonAf >90 (>60 ml/min/1.73 sqM) Glucose 88 (74-99) mg/dL Calcium 9.8 (8.4-10.2) mg/dL Total Bilirubin 0.4 (0.2-1.3) mg/dL AST 19 (14-36) U/L ALT 11 (4-34) U/L Alkaline Phosphatase 44 (38-126) U/L Total Protein 7.3 (6.3-8.2) g/dL Albumin 4.3 (3.5-5.0) g/dL TSH 0.777 (0.465-4.680) mIU/L Urine Color Light Yellow Urine Appearance Clear (Clear) Urine pH 6.5 (5.0-8.0) Ur Specific [place] 1.006 (1.001-1.035) Urine Protein Negative (Negative) Urine Glucose (UA) Negative (Negative) Urine Ketones Negative (Negative) Urine Blood Negative (Negative) Urine Nitrite Negative (Negative) Urine Bilirubin Negative (Negative) Urine Urobilinogen <2.0 (<2.0) mg/dL Ur Leukocyte Esterase Negative (Negative) Urine HCG, Qual (Not Detectd) 05/27/21 Range/Units 17:05 WBC (3.8-10.6) k/uL RBC (3.80-5.40) m/uL Hgb (11.4-16.0) gm/dL Hct (34.0-46.0) % MCV (80.0-100.0) fL MCH (25.0-35.0) pg MCHC (31.0-37.0) g/dL RDW (11.5-15.5) % Plt Count (150-450) k/uL MPV Neutrophils % % Lymphocytes % % Monocytes % % Eosinophils % % Basophils % % Neutrophils # (1.3-7.7) k/uL Lymphocytes # (1.0-4.8) k/uL Monocytes # (0-1.0) k/uL Eosinophils # (0-0.7) k/uL Basophils # (0-0.2) k/uL Sodium (137-145) mmol/L Potassium (3.5-5.1) mmol/L Chloride (98-107) mmol/L Carbon Dioxide (22-30) mmol/L Anion Gap mmol/L BUN (7-17) mg/dL Creatinine (0.52-1.04) mg/dL Est GFR (CKD-EPI)AfAm (>60 ml/min/1.73 sqM) Est GFR (CKD-EPI)NonAf (>60 ml/min/1.73 sqM) Glucose (74-99) mg/dL Calcium (8.4-10.2) mg/dL Total Bilirubin (0.2-1.3) mg/dL AST (14-36) U/L ALT (4-34) U/L Alkaline Phosphatase (38-126) U/L Total Protein (6.3-8.2) g/dL Albumin (3.5-5.0) g/dL TSH (0.465-4.680) mIU/L Urine Color Urine Appearance (Clear) Urine pH (5.0-8.0) Ur Specific [place] (1.001-1.035) Urine Protein (Negative) Urine Glucose (UA) (Negative) Urine Ketones (Negative) Urine Blood (Negative) Urine Nitrite (Negative) Urine Bilirubin (Negative) Urine Urobilinogen (<2.0) mg/dL Ur Leukocyte Esterase (Negative) Urine HCG, Qual Not Detected (Not Detectd) Disposition Clinical Impression: Light headedness, Fatigue Disposition: HOME SELF-CARE Condition: Stable Instructions (If sedation given, give patient instructions): Lightheadedness (ED) Additional Instructions: Please return to the Emergency Department if symptoms worsen or any other concerns. Continue to follow-up with your primary care. Is patient prescribed a controlled substance at d/c from ED?: No Referrals: Eleuterio Alberto DO [Primary Care Provider] - 1-2 days Time of Disposition: 19:07
[2021-05-27 17:19] LABS: Basophils % (A) 0 %; Eosinophils # (A) 0.1 k/uL (0-0.7); Eosinophils % (A) 1 %; HCT 39.9 % (34.0-46.0); HGB 13.8 gm/dL (11.4-16.0); Lymphocytes # (A) 2.9 k/uL (1.0-4.8); Lymphocytes % (A) 25 %; MCHC 34.5 g/dL (31.0-37.0); MCV 92.7 fL (80.0-100.0); Mean Platelet Volume 6.8; Monocytes # (A) 0.3 k/uL (0-1.0); Monocytes % (A) 3 %; Neutrophils % (A) 70 %; Platelet Count 376 k/uL (150-450); WBC 11.4 k/uL (3.8-10.6)
[2021-05-27 17:21] LABS: Appearance,Urine Clear (Clear); Bilirubin,Urine Negative (Negative); Blood,Urine Negative (Negative); Color,Urine Light Yellow; Glucose,Urine (UA) Negative (Negative); Ketones,Urine Negative (Negative); Leukocyte Esterase,Urine Negative (Negative); Nitrite,Urine Negative (Negative); PH, Urine 6.5 (5.0-8.0); Protein,Urine Negative (Negative); Specific Gravity,Urine 1.006 (1.001-1.035); Urobilinogen,Urine <2.0 mg/dL (<2.0)
[2021-05-27 17:29] LABS: ALT 11 U/L (4-34); AST 19 U/L (14-36); African American GFR (CKD) >90 (>60 ml/min/1.73 sqM); Albumin 4.3 g/dL (3.5-5.0); Alkaline Phosphatase 44 U/L (38-126); Anion Gap 8 mmol/L; Blood Urea Nitrogen 9 mg/dL (7-17); Calcium 9.8 mg/dL (8.4-10.2); Carbon Dioxide 26 mmol/L (22-30); Chloride 104 mmol/L (98-107); Glucose 88 mg/dL (74-99); Non-African American GFR(CKD) >90 (>60 ml/min/1.73 sqM); Potassium 4.2 mmol/L (3.5-5.1); Sodium 138 mmol/L (137-145); Total Bilirubin 0.4 mg/dL (0.2-1.3); Total Protein 7.3 g/dL (6.3-8.2)
[2021-05-27 18:57] VITALS: BP 107/56; PULSE 65; RESP 18; TEMP 98.1
[2021-05-28 00:08] LABS: % Iron Saturation 35.56 (12.00-45.00); Iron 116 ug/dL (50-170); Total Iron Binding Capacity 326 ug/dL (228-460)
== END 2021-05-27 19:15 | disposition home or self-care (01) ==
LOC: EC 15:53
DX: R42 Dizziness and giddiness (principal); R53.83 Other fatigue; K21.9 Gastro-esophageal reflux disease without esophagitis; E07.9 Disorder of thyroid, unspecified; F41.9 Anxiety disorder, unspecified; F32.9 Major depressive disorder, single episode, unspecified; F90.9 Attention-deficit hyperactivity disorder, unspecified type; F17.200 Nicotine dependence, unspecified, uncomplicated; F12.90 Cannabis use, unspecified, uncomplicated; Z88.2 Allergy status to sulfonamides
CPT/HCPCS: 36415; 80053; 81003; 81025; 83540; 83550; 84443; 85025; 93005; 96360; 99284

== ENCOUNTER 2021-09-05 21:43 | Emergency (ER) | payer OTHER ==
[2021-09-05 21:49] VITALS: RESP 18; TEMP 98.7
--- NOTE | 2021-09-06 00:14 | ED ---
General Adult HPI - General Chief complaint: Syncope Stated complaint: Syncope Time Seen by Provider: 09/05/21 23:52 Source: EMS Mode of arrival: wheelchair - History of Present Illness Initial comments: Dictation was produced using [employer] dictation software. please excuse any grammatical, word or spelling errors. Chief Complaint: 25-year-old female presents to emergency department after multiple episodes of syncope History of Present Illness: The patient 25-year-old female presents emergency department for multiple episodes of syncope. She had 2 episodes since 8:30. Patient is accompanied by her ex-boyfriend/friend who witnessed one of these events. He states that her arm twitched but she wasn't convulsing. There wasn't any clear postictal time were patient was sonorous or confused. Patient had similar event several years ago. She's had a total of 3 episodes of syncope. At this moment patient feels a little weak. She denies any pain comp laints. She denies any focal complaints. No chest pain, shortness of breath or constitutional symptoms. Patient unsure if she is . The ROS documented in this emergency department record has been reviewed and confirmed by me. Those systems with pertinent positive or negative responses h ave been documented in the HPI. All other systems are other negative and/or noncontributory. PHYSICAL EXAM: General Impression: Alert and oriented x3, not in acute distress HEENT: Normocephalic atraumatic, extra-ocular movements intact, pupils equal and reactive to light bilaterally, mucous membranes moist. Cardiovascular: Heart regular rate and rhythm Chest: Able to complete full sentences, no retractions, no tachypnea Abdomen: abdomen soft, non-tender, non-distended, no organomegaly Musculoskeletal: Pulses present and equal in all extremities, no peripheral edema Motor: no focal deficits noted Neurological: CN II-XII grossly intact, no focal motor or sensory deficits noted Skin: Intact with no visualized rashes Psych: Normal affect and mood ED course: 25-year-old female presents to the emergency department for syncope. One of the episodes was witnessed by her ex-boyfriend the bedside who is accompanying her at the moment. Vital signs upon arrival are within acceptable limits. EKG shows sinus bradycardia. No evidence of cardiac cause of syncope. QT is normal, no Brugada wave, no evidence of hypertrophic cardiomyopathy, no delta wave, no heart block Return evaluation obtained. CBC, metabolic panel, coag panel is unremarkable. Patient is non. Patient observed in the emergency department for approximately 5 hours. Patient reevaluated bedside at 2:50 AM on any stable medical condition. At this point is not clear what caused patient's symptoms. However there are no high-risk features. Patient has good relationship with her primary care doctor. She is advised follow-up with her PCP. Return precautions discussed. EKG interpretation: Ventricular rate 59, sinus bradycardia,. Interval 150, QRS 97, QTC 410. No VT prolongation, no QTC prolongation, no ST or T-wave changes noted. Overall, this EKG is unremarkable - Related Data Home Medications Medication Instructions Recorded Confirmed Cholecalciferol [Vitamin D3] 1,000 unit PO DAILY 10/02/18 05/27/21 Omeprazole 20 mg PO DAILY 10/02/18 05/27/21 Fexofenadine HCl [Philomena Allergy] 180 mg PO DAILY 05/27/21 05/27/21 Glucosamine Sulfate 500 mg PO DAILY 05/27/21 05/27/21 Levothyroxine Sodium [Synthroid] 75 mcg PO DAILY 05/27/21 05/27/21 Multivitamins, Thera [Multivitamin 1 tab PO DAILY 05/27/21 05/27/21 (formulary)] Nystatin 100,000Unit/gm Cream 1 applic TOPICAL DAILY PRN 05/27/21 05/27/21 [Mycostatin Cream] Tiotropium 18 Mcg/Puff [Spiriva] 1 puff INHALATION RT-DAILY 05/27/21 05/27/21 Allergies Allergy/AdvReac Type Severity Reaction Status Date / Time sulfamethazine Allergy Mild Rash/Hives Verified 09/05/21 21:49 [Sulfamethazine] Sulfa (Sulfonamide Allergy Rash/Hives Verified 09/05/21 21:49 Antibiotics) Review of Systems ROS Statement: Those systems with pertinent positive or pertinent negative responses have been documented in the HPI. ROS Other: All systems not noted in ROS Statement are negative. Past Medical History Past Medical History: GERD/Reflux, Thyroid Disorder Additional Past Medical History / Comment(s): Chronic low back pain, irritable bowel syndrome, carpal tunnel syndrome, overactive bladder, hypothyroidism. History of Any Multi-Drug Resistant Organisms: None Reported Past Surgical History: Orthopedic Surgery Additional Past Surgical History / Comment(s): BILAT CTR, COLONOSCOPY, EGD Past Anesthesia/Blood Transfusion Reactions: Motion Sickness Past Psychological History: ADD/ADHD, Anxiety, Depression Smoking Status: Current every day smoker Past Alcohol Use History: Rare Past Drug Use History: None Reported, Marijuana - Past Family History Father Additional Family Medical History / Comment(s): Father is alive at age 55 with history of depression, anxiety, bipolar Mother Additional Family Medical History / Comment(s): Mother is alive at age 55 with hypoglycemia and brain aneurysm. Brother(s) Family Medical History: Cancer Additional Family Medical History / Comment(s): She has 2 brothers ONE HAD THROAT CANCER AND one had successfully committed suicide. Sister(s) Additional Family Medical History / Comment(s): She has 2 sisters with no major medical problems. Course Vital Signs 09/05/21 09/06/21 09/06/21 21:46 00:39 02:00 Temperature 98.7 F Pulse Rate 65 65 62 Respiratory 18 18 18 Rate Blood Pressure 91/58 93/53 100/64 O2 Sat by Pulse 100 98 95 Oximetry Medical Decision Making - Lab Data Result diagrams: 09/06/21 00:21 09/06/21 00:21 Lab Results 09/06/21 09/06/21 09/06/21 Range/Units 00:21 00:21 00:21 WBC 12.3 H (3.8-10.6) k/uL RBC 4.39 (3.80-5.40) m/uL Hgb 14.2 (11.4-16.0) gm/dL Hct 41.4 (34.0-46.0) % MCV 94.3 (80.0-100.0) fL MCH 32.4 (25.0-35.0) pg MCHC 34.3 (31.0-37.0) g/dL RDW 11.5 (11.5-15.5) % Plt Count 357 (150-450) k/uL MPV 7.0 Neutrophils % 78 % Lymphocytes % 17 % Monocytes % 3 % Eosinophils % 0 % Basophils % 0 % Neutrophils # 9.6 H (1.3-7.7) k/uL Lymphocytes # 2.1 (1.0-4.8) k/uL Monocytes # 0.4 (0-1.0) k/uL Eosinophils # 0.1 (0-0.7) k/uL Basophils # 0.0 (0-0.2) k/uL PT 10.5 (9.0-12.0) sec INR 1.0 (<1.2) APTT 22.8 (22.0-30.0) sec Sodium 138 (137-145) mmol/L Potassium 3.9 (3.5-5.1) mmol/L Chloride 102 (98-107) mmol/L Carbon Dioxide 26 (22-30) mmol/L Anion Gap 10 mmol/L BUN 12 (7-17) mg/dL Creatinine 0.64 (0.52-1.04) mg/dL Est GFR (CKD-EPI)AfAm >90 (>60 ml/min/1.73 sqM) Est GFR (CKD-EPI)NonAf >90 (>60 ml/min/1.73 sqM) Glucose 93 (74-99) mg/dL Calcium 9.4 (8.4-10.2) mg/dL Total Bilirubin 0.6 (0.2-1.3) mg/dL AST 22 (14-36) U/L ALT 13 (4-34) U/L Alkaline Phosphatase 47 (38-126) U/L Total Protein 7.8 (6.3-8.2) g/dL Albumin 4.6 (3.5-5.0) g/dL HCG, Quant <2.4 mIU/mL Disposition Clinical Impression: Syncope Disposition: HOME SELF-CARE Condition: Good Instructions (If sedation given, give patient instructions): Syncope (ED) Is patient prescribed a controlled substance at d/c from ED?: No Referrals: Alma Vasquez MD [Primary Care Provider] - 1-2 days
[2021-09-06] MEDS ORDERED: SODIUM CHLORIDE 0.9% 1,000 ML IV STA (00:36)
[2021-09-06 00:57] LABS: Basophils % (A) 0 %; Eosinophils # (A) 0.1 k/uL (0-0.7); Eosinophils % (A) 0 %; HCT 41.4 % (34.0-46.0); HGB 14.2 gm/dL (11.4-16.0); Lymphocytes # (A) 2.1 k/uL (1.0-4.8); Lymphocytes % (A) 17 %; MCH 32.4 pg (25.0-35.0); MCHC 34.3 g/dL (31.0-37.0); MCV 94.3 fL (80.0-100.0); Monocytes # (A) 0.4 k/uL (0-1.0); Monocytes % (A) 3 %; Neutrophils # (A) 9.6 k/uL (1.3-7.7); Neutrophils % (A) 78 %; Platelet Count 357 k/uL (150-450); RBC 4.39 m/uL (3.80-5.40); RDW 11.5 % (11.5-15.5); WBC 12.3 k/uL (3.8-10.6)
[2021-09-06 01:25] LABS: African American GFR (CKD) >90 (>60 ml/min/1.73 sqM); Anion Gap 10 mmol/L; Blood Urea Nitrogen 12 mg/dL (7-17); Calcium 9.4 mg/dL (8.4-10.2); Carbon Dioxide 26 mmol/L (22-30); Chloride 102 mmol/L (98-107); Glucose 93 mg/dL (74-99); Non-African American GFR(CKD) >90 (>60 ml/min/1.73 sqM); Potassium 3.9 mmol/L (3.5-5.1); Sodium 138 mmol/L (137-145)
[2021-09-06 01:26] LABS: ALT 13 U/L (4-34); AST 22 U/L (14-36); Albumin 4.6 g/dL (3.5-5.0); Alkaline Phosphatase 47 U/L (38-126); Total Bilirubin 0.6 mg/dL (0.2-1.3); Total Protein 7.8 g/dL (6.3-8.2)
[2021-09-06 01:35] LABS: Partial Thromboplastin Time 22.8 sec (22.0-30.0); Prothrombin Time 10.5 sec (9.0-12.0)
[2021-09-06 01:42] LABS: HCG,Quantitative Serum <2.4 mIU/mL
[2021-09-06 02:09] VITALS: PULSE 62
[2021-09-06 02:56] VITALS: BP 102/60
== END 2021-09-06 02:56 | disposition home or self-care (01) ==
LOC: SUPCPDRO 21:43 → EC 21:43
DX: R55 Syncope and collapse (principal); K21.9 Gastro-esophageal reflux disease without esophagitis; F32.A Depression, unspecified; F41.9 Anxiety disorder, unspecified; F90.9 Attention-deficit hyperactivity disorder, unspecified type; F17.200 Nicotine dependence, unspecified, uncomplicated; Z79.890 Hormone replacement therapy; Z79.899 Other long term (current) drug therapy
CPT/HCPCS: 36415; 80053; 84702; 85025; 85610; 85730; 93005; 96360; 96361; 99284

== ENCOUNTER → 2021-09-21 | Outpatient (CLI) | payer OTHER ==
[2021-09-21 23:11] LABS: % Iron Saturation 32.1 (12.00-45.00); African American GFR (CKD) 141.5 (60.0-200.0); Albumin 4.4 g/dL (3.8-4.9); Albumin/Globulin Ratio 1.71 (1.60-3.17); Anion Gap 11.9 mmol/L (10.00-18.00); BUN/Creat Ratio 8.96 Ratio (12.00-20.00); Blood Urea Nitrogen 5.8 mg/dL (9.0-27.0); Calcium 9.4 mg/dL (8.7-10.3); Carbon Dioxide 24.2 mmol/L (20.0-27.5); Globulin 2.6 g/dL (1.6-3.3); Non-African American GFR(CKD) 122.1 (60.0-200.0); Total Bilirubin 0.5 mg/dL (0.30-1.20)
[2021-09-21 23:18] LABS: Basophils # (A) 0.02 X 10*3/uL (0.00-0.10); Basophils % (A) 0.3 %; Eosinophils # (A) 0.05 X 10*3/uL (0.04-0.35); Eosinophils % (A) 0.8 %; HCT 36.2 % (37.2-46.3); HGB 12.4 g/dL (12.0-15.0); Immature Grans, Automated 0.3 %; Lymphocytes # (A) 2.09 X 10*3/uL (0.90-5.00); MCH 31.6 pg (27.0-32.0); MCHC 34.3 g/dL (32.0-37.0); MCV 92.1 fL (80.0-97.0); Monocytes # (A) 0.28 X 10*3/uL (0.20-1.00); Monocytes % (A) 4.6 %; NRBC Per 100 WBC 0 /100 WBCS (0.0-0.0); Neutrophils # (A) 3.69 X 10*3/uL (1.80-7.70); Platelet Count 333 X 10*3/uL (140-440); RBC 3.93 X 10*6/uL (4.10-5.20); RDW 11.4 % (11.5-14.5); WBC 6.15 X 10*3/uL (4.50-10.00)
[2021-09-22 15:14] LABS: Vitamin D, 1, 25-Dihydroxy 68 pg/mL (20 - 79)
[2021-09-23 06:55] LABS: Vitamin A 29 ug/dL (38-106)
== END | disposition home or self-care (01) ==
LOC: LABWHC1 14:24
PROVIDERS: ATTEND Internal Medicine
DX: Z71.3 Dietary counseling and surveillance (principal)
CPT/HCPCS: 36415; 80053; 82607; 82652; 82728; 83540; 83550; 84590; 85025

== ENCOUNTER 2021-10-21 19:57 | Emergency (ER) | payer OTHER ==
[2021-10-21 20:42] VITALS: TEMP 97.3
[2021-10-21] MEDS ORDERED: KETOROLAC 15 MG/ML 1 ML VIAL IVP STA (20:57)
[2021-10-21] MEDS ORDERED: MORPHINE SULFATE 4 MG/ML SYRINGE IV STA (20:57)
[2021-10-21 22:51] LABS: Appearance,Urine Clear (Clear); Bilirubin,Urine Negative (Negative); Blood,Urine Negative (Negative); Color,Urine Yellow; Glucose,Urine (UA) Negative (Negative); Ketones,Urine Negative (Negative); Leukocyte Esterase,Urine Negative (Negative); Nitrite,Urine Negative (Negative); PH, Urine 6.5 (5.0-8.0); Protein,Urine Negative (Negative)
[2021-10-21 23:08] LABS: Basophils % (A) 0 %; Eosinophils # (A) 0.1 k/uL (0-0.7); Eosinophils % (A) 1 %; HCT 36.2 % (34.0-46.0); HGB 12.8 gm/dL (11.4-16.0); Lymphocytes # (A) 2.5 k/uL (1.0-4.8); Lymphocytes % (A) 49 %; MCH 32.5 pg (25.0-35.0); MCHC 35.3 g/dL (31.0-37.0); MCV 91.9 fL (80.0-100.0); Mean Platelet Volume 6.7; Monocytes # (A) 0.3 k/uL (0-1.0); Monocytes % (A) 6 %; Neutrophils # (A) 2.1 k/uL (1.3-7.7); Neutrophils % (A) 40 %; Platelet Count 331 k/uL (150-450); RBC 3.94 m/uL (3.80-5.40); RDW 12.4 % (11.5-15.5); WBC 5.1 k/uL (3.8-10.6)
[2021-10-21 23:09] LABS: Amphetamine Screen,Urine Not Detected (NotDetected); Cocaine Screen,Urine Not Detected (NotDetected); Opiate Screen,Urine Not Detected (NotDetected); Phencyclidine Screen,Urine Not Detected (NotDetected); Urn Cannabinoid Scrn Detected (NotDetected)
[2021-10-21 23:10] LABS: Barbiturate Screen,Urine Not Detected (NotDetected); Benzodiazepines Screen,Urine Not Detected (NotDetected); Methadone Screen, Urine Not Detected (NotDetected); Oxycodone Screen, Urine Not Detected (NotDetected); Tricyclic Antidepressant,Urine Not Detected (NotDetected)
[2021-10-21 23:25] LABS: ALT 11 U/L (4-34); AST 20 U/L (14-36); African American GFR (CKD) >90 (>60 ml/min/1.73 sqM); Albumin 4.1 g/dL (3.5-5.0); Alkaline Phosphatase 40 U/L (38-126); Anion Gap 6 mmol/L; Blood Urea Nitrogen 6 mg/dL (7-17); Calcium 8.7 mg/dL (8.4-10.2); Carbon Dioxide 29 mmol/L (22-30); Chloride 103 mmol/L (98-107); Glucose 75 mg/dL (74-99); Non-African American GFR(CKD) >90 (>60 ml/min/1.73 sqM); Potassium 4.1 mmol/L (3.5-5.1); Sodium 138 mmol/L (137-145); Total Bilirubin 0.4 mg/dL (0.2-1.3); Total Protein 7.1 g/dL (6.3-8.2)
--- NOTE | 2021-10-21 23:26 | ED ---
Psych HPI <Corry Jernigan - Last Filed: 10/21/21 23:50> - General Source: patient Mode of arrival: ambulatory <Arpan Munoz - Last Filed: 10/23/21 01:58> - General Chief Complaint: Psychiatric Symptoms Stated Complaint: Mental Health Time Seen by Provider: 10/21/21 21:17 - History of Present Illness Initial Comments: This 25-year-old female with a past medical history of ARFID eating disorder, anxiety/depression and irritable bowel syndrome since the emergency department for psychiatric evaluation. Patient states is currently being seen by a dietitian and behavioral therapist through [facility]. Patient states her behavioral therapist a dietitian have been in contact with [facility] in [place] who have a psychiatric unit specifically for eating disorders. [facility] recommended she presents to the emergency department to get laboratory workup, urine and EKG so she can be admitted to their eating disorder psychiatric unit for further evaluation and treatment. Patient states she has been diagnosed with anxiety and depression since age of 11 and states she was diagnosed with an eating disorder this past July, however she has always been terrified to eat since she was young. 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 Patient states she does eat daily, however it is very small amounts. Patient currently denies any medical complaints or symptoms at this time. She denies any chest pain, shortness of breath, abdominal pain, nausea, vomiting, change in bowel or bladder, change in vision, headache, lightheadedness, dizziness. Patient denies any SI, HI, auditory or visual hallucinations. (Corry Jernigan) - Related Data Home Medications Medication Instructions Recorded Confirmed Omeprazole 20 mg PO DAILY 10/02/18 10/21/21 Mupirocin 2% Oint [Bactroban 2% 1 applic TOPICAL DAILY PRN 10/21/21 10/21/21 Oint] Simethicone [Gas-X] 125 mg PO ACHS PRN 10/21/21 10/21/21 valACYclovir [Valtrex] 500 mg PO QID PRN 10/21/21 10/21/21 Allergies Allergy/AdvReac Type Severity Reaction Status Date / Time sulfamethazine Allergy Mild Rash/Hives Verified 10/21/21 22:18 [Sulfamethazine] Sulfa (Sulfonamide Allergy Rash/Hives Verified 10/21/21 22:18 Antibiotics) Review of Systems ROS Other: All systems not noted in ROS Statement are negative. <Corry Jernigan - Last Filed: 10/21/21 23:50> ROS Other: All systems not noted in ROS Statement are negative. <Arpan Munoz - Last Filed: 10/23/21 01:58> ROS Statement: Those systems with pertinent positive or pertinent negative responses have been documented in the HPI. Past Medical History Past Medical History: GERD/Reflux, Thyroid Disorder Additional Past Medical History / Comment(s): Chronic low back pain, irritable bowel syndrome, carpal tunnel syndrome, overactive bladder, hypothyroidism. History of Any Multi-Drug Resistant Organisms: None Reported Past Surgical History: Orthopedic Surgery Additional Past Surgical History / Comment(s): BILAT CTR, COLONOSCOPY, EGD Past Anesthesia/Blood Transfusion Reactions: Motion Sickness Past Psychological History: ADD/ADHD, Anxiety, Depression Smoking Status: Current every day smoker Past Alcohol Use History: Rare Past Drug Use History: None Reported, Marijuana - Past Family History Father Additional Family Medical History / Comment(s): Father is alive at age 55 with history of depression, anxiety, bipolar Mother Additional Family Medical History / Comment(s): Mother is alive at age 55 with hypoglycemia and brain aneurysm. Brother(s) Family Medical History: Cancer Additional Family Medical History / Comment(s): She has 2 brothers ONE HAD THROAT CANCER AND one had successfully committed suicide. Sister(s) Additional Family Medical History / Comment(s): She has 2 sisters with no major medical problems. <TammyArpan - Last Filed: 10/23/21 01:58> General Exam General appearance: alert, in no apparent distress Head exam: Present: atraumatic, normocephalic, normal inspection Eye exam: Present: normal appearance, PERRL, EOMI. Absent: scleral icterus, conjunctival injection, periorbital swelling Pupils: Present: normal accommodation ENT exam: Present: normal exam, mucous membranes moist, TM's normal bilaterally Neck exam: Present: normal inspection. Absent: tenderness, meningismus, l ymphadenopathy Respiratory exam: Present: normal lung sounds bilaterally. Absent: respiratory distress, wheezes, rales, rhonchi, stridor Cardiovascular Exam: Present: regular rate, normal rhythm, normal heart sounds. Absent: systolic murmur, diastolic murmur, rubs, gallop, clicks GI/Abdominal exam: Present: soft, normal bowel sounds. Absent: distended, tenderness, guarding, rebound, rigid Extremities exam: Present: normal inspection, full ROM, normal capillary refill. Absent: tenderness, pedal edema, joint swelling, calf tenderness Back exam: Present: normal inspection. Absent: CVA tenderness (R), CVA tenderness (L), paraspinal tenderness, vertebral tenderness Neurological exam: Present: alert, oriented X3, CN II-XII intact Psychiatric exam: Present: normal affect, normal mood Skin exam: Present: warm, dry, intact, normal color. Absent: rash <Corry Jernigan - Last Filed: 10/21/21 23:50> Course Vital Signs 10/21/21 10/22/21 20:38 00:10 Temperature 97.3 F L Pulse Rate 64 54 L Respiratory 18 16 Rate Blood Pressure 107/58 109/46 O2 Sat by Pulse 100 98 Oximetry Medical Decision Making - Lab Data Result diagrams: 10/21/21 23:02 10/21/21 23:02 <Corry Jernigan - Last Filed: 10/21/21 23:50> - Lab Data Result diagrams: 10/21/21 23:02 10/21/21 23:02 - EKG Data -: EKG Interpreted by Me (EKG is sinus a bradycardia 49 MN 152 QRS 87 QTC 390) <Arpan Munoz - Last Filed: 10/23/21 01:58> - Medical Decision Making This 25-year-old female presents emergency Department for psychiatric evaluation and laboratory studies to be performed before she can check herself into [facility] in [place] for her ARFID eating disorder. EPS nurse Bethany did see and evaluate patient and recommended I obtain the necessary laboratory studies for patient so she can present all of the results to her [facility] dietitian in behavioral therapist that it been in contact with [facility] so she is able to be admitted, evaluated and treated for her condition. In order for patient to be admitted to [facility] she was instructed to get laboratory studies and an EKG performed here before getting in contact with them. Patient without any complaints OF medical symptoms or issues. I did obtain necessary laboratory studies and EKG for patient that were necessary for her admission to [facility]. eps nurse stated that due to there being no current openings for patient at [facility] she could stay in our emergency department until an opening became available. Patient was offered to stay here in the hospital until [facility] does have a room available for her on the psychiatric unit for her eating disorder, however patient did refuse and stated she would be able to call on her own next week as she does have a follow-up appointment with her dietitian and behavioral therapist at [facility]. Patient was requesting discharge. Strict return precautions were discussed. Patient verbally agreed to plan. Patient sent home in stable condition. Case discussed in detail with my attending, . (Corry Jernigan) 25 female was seen evaluated by psychiatry here in the ER and patient can this time be discharged home (Arpan Munoz) - Lab Data Lab Results 10/21/21 10/21/21 10/21/21 Range/Units 22:12 22:12 22:12 WBC (3.8-10.6) k/uL RBC (3.80-5.40) m/uL Hgb (11.4-16.0) gm/dL Hct (34.0-46.0) % MCV (80.0-100.0) fL MCH (25.0-35.0) pg MCHC (31.0-37.0) g/dL RDW (11.5-15.5) % Plt Count (150-450) k/uL MPV Neutrophils % % Lymphocytes % % Monocytes % % Eosinophils % % Basophils % % Neutrophils # (1.3-7.7) k/uL Lymphocytes # (1.0-4.8) k/uL Monocytes # (0-1.0) k/uL Eosinophils # (0-0.7) k/uL Basophils # (0-0.2) k/uL Sodium (137-145) mmol/L Potassium (3.5-5.1) mmol/L Chloride (98-107) mmol/L Carbon Dioxide (22-30) mmol/L Anion Gap mmol/L BUN (7-17) mg/dL Creatinine (0.52-1.04) mg/dL Est GFR (CKD-EPI)AfAm (>60 ml/min/1.73 sqM) Est GFR (CKD-EPI)NonAf (>60 ml/min/1.73 sqM) Glucose (74-99) mg/dL Calcium (8.4-10.2) mg/dL Total Bilirubin (0.2-1.3) mg/dL AST (14-36) U/L ALT (4-34) U/L Alkaline Phosphatase (38-126) U/L Total Protein (6.3-8.2) g/dL Albumin (3.5-5.0) g/dL TSH (0.465-4.680) mIU/L Free T4 (0.78-2.19) ng/dL Urine Color Yellow Urine Appearance Clear (Clear) Urine pH 6.5 (5.0-8.0) Ur Specific [place] 1.020 (1.001-1.035) Urine Protein Negative (Negative) Urine Glucose (UA) Negative (Negative) Urine Ketones Negative (Negative) Urine Blood Negative (Negative) Urine Nitrite Negative (Negative) Urine Bilirubin Negative (Negative) Urine Urobilinogen 3.0 (<2.0) mg/dL Ur Leukocyte Esterase Negative (Negative) Urine HCG, Qual Not Detected (Not Detectd) Urine Opiates Screen Not Detected (NotDetected) Ur Oxycodone Screen Not Detected (NotDetected) Urine Methadone Screen Not Detected (NotDetected) Ur Propoxyphene Screen Not Detected (NotDetected) Ur Barbiturates Screen Not Detected (NotDetected) U Tricyclic Antidepress Not Detected (NotDetected) Ur Phencyclidine Scrn Not Detected (NotDetected) Ur Amphetamines Screen Not Detected (NotDetected) U Methamphetamines Scrn Not Detected (NotDetected) U Benzodiazepines Scrn Not Detected (NotDetected) Urine Cocaine Screen Not Detected (NotDetected) U Marijuana (THC) Screen Detected H (NotDetected) Coronavirus (PCR) (Not Detectd) 10/21/21 10/21/21 10/21/21 Range/Units 23:02 23:02 23:02 WBC 5.1 (3.8-10.6) k/uL RBC 3.94 (3.80-5.40) m/uL Hgb 12.8 (11.4-16.0) gm/dL Hct 36.2 (34.0-46.0) % MCV 91.9 (80.0-100.0) fL MCH 32.5 (25.0-35.0) pg MCHC 35.3 (31.0-37.0) g/dL RDW 12.4 (11.5-15.5) % Plt Count 331 (150-450) k/uL MPV 6.7 Neutrophils % 40 % Lymphocytes % 49 % Monocytes % 6 % Eosinophils % 1 % Basophils % 0 % Neutrophils # 2.1 (1.3-7.7) k/uL Lymphocytes # 2.5 (1.0-4.8) k/uL Monocytes # 0.3 (0-1.0) k/uL Eosinophils # 0.1 (0-0.7) k/uL Basophils # 0.0 (0-0.2) k/uL Sodium 138 (137-145) mmol/L Potassium 4.1 (3.5-5.1) mmol/L Chloride 103 (98-107) mmol/L Carbon Dioxide 29 (22-30) mmol/L Anion Gap 6 mmol/L BUN 6 L (7-17) mg/dL Creatinine 0.55 (0.52-1.04) mg/dL Est GFR (CKD-EPI)AfAm >90 (>60 ml/min/1.73 sqM) Est GFR (CKD-EPI)NonAf >90 (>60 ml/min/1.73 sqM) Glucose 75 (74-99) mg/dL Calcium 8.7 (8.4-10.2) mg/dL Total Bilirubin 0.4 (0.2-1.3) mg/dL AST 20 (14-36) U/L ALT 11 (4-34) U/L Alkaline Phosphatase 40 (38-126) U/L Total Protein 7.1 (6.3-8.2) g/dL Albumin 4.1 (3.5-5.0) g/dL TSH 6.400 H (0.465-4.680) mIU/L Free T4 1.15 (0.78-2.19) ng/dL Urine Color Urine Appearance (Clear) Urine pH (5.0-8.0) Ur Specific [place] (1.001-1.035) Urine Protein (Negative) Urine Glucose (UA) (Negative) Urine Ketones (Negative) Urine Blood (Negative) Urine Nitrite (Negative) Urine Bilirubin (Negative) Urine Urobilinogen (<2.0) mg/dL Ur Leukocyte Esterase (Negative) Urine HCG, Qual (Not Detectd) Urine Opiates Screen (NotDetected) Ur Oxycodone Screen (NotDetected) Urine Methadone Screen (NotDetected) Ur Propoxyphene Screen (NotDetected) Ur Barbiturates Screen (NotDetected) U Tricyclic Antidepress (NotDetected) Ur Phencyclidine Scrn (NotDetected) Ur Amphetamines Screen (NotDetected) U Methamphetamines Scrn (NotDetected) U Benzodiazepines Scrn (NotDetected) Urine Cocaine Screen (NotDetected) U Marijuana (THC) Screen (NotDetected) Coronavirus (PCR) Not Detected (Not Detectd) Disposition Is patient prescribed a controlled substance at d/c from ED?: No Time of Disposition: 23:48 <Corry Jernigan - Last Filed: 10/21/21 23:50> <Arpan Munoz - Last Filed: 10/23/21 01:58> Clinical Impression: Encounter for psychiatric assessment, History of eating disorder Disposition: HOME SELF-CARE Condition: Stable Instructions (If sedation given, give patient instructions): Medical Clearance for Psychiatric Care (ED) Additional Instructions: Please return to the emergency department with any new, worsening, or concerning symptoms. Follow-up with your primary care provider early next week. Follow-up with your dietitian and behavioral therapist at [facility] next week to discuss further evaluation and treatment at [facility] as discussed. Referrals: Alma Vasquez MD [Primary Care Provider] - 1-2 days
[2021-10-22 00:10] VITALS: BP 109/46; PULSE 54; RESP 16
[2021-10-22 00:46] LABS: T4, Free (Free Thyroxine) 1.15 ng/dL (0.78-2.19)
== END 2021-10-22 00:26 | disposition home or self-care (01) ==
LOC: EC 19:57
DX: Z04.6 Encounter for general psychiatric examination, requested by authority (principal); Z20.822 Contact with and (suspected) exposure to COVID-19; K21.9 Gastro-esophageal reflux disease without esophagitis; F32.A Depression, unspecified; F41.9 Anxiety disorder, unspecified; F90.9 Attention-deficit hyperactivity disorder, unspecified type; F17.200 Nicotine dependence, unspecified, uncomplicated; Z79.899 Other long term (current) drug therapy; Z86.59 Personal history of other mental and behavioral disorders
CPT/HCPCS: 36415; 80053; 80306; 81003; 81025; 82075; 84439; 84443; 85025; 87635; 93005; 99284

== ENCOUNTER 2021-11-16 15:31 | Emergency (ER) | payer OTHER ==
[2021-11-16 15:40] VITALS: BP 101/66; PULSE 60; RESP 16; TEMP 97.3
--- NOTE | 2021-11-16 16:19 | ED ---
General Adult HPI - General Chief complaint: Psychiatric Symptoms Stated complaint: Mental health Time Seen by Provider: 11/16/21 15:41 Source: patient, RN notes reviewed, old records reviewed Mode of arrival: ambulatory Limitations: no limitations - History of Present Illness Initial comments: 25-year-old female presenting for psychiatric evaluation. Patient was told by [facility] as need be evaluated in the emergency department prior to transfer for inpatient psychiatric admission. She has a history of anxiety and depression as well as an eating disorder. It was recommended that she undergo inpatient treatment. She is not suicidal or homicidal. - Related Data Home Medications Medication Instructions Recorded Confirmed Omeprazole 20 mg PO DAILY 10/02/18 11/16/21 Mupirocin 2% Oint [Bactroban 2% 1 applic TOPICAL DAILY PRN 10/21/21 11/16/21 Oint] Simethicone [Gas-X] 125 mg PO ACHS PRN 10/21/21 11/16/21 valACYclovir [Valtrex] 500 mg PO QID PRN 10/21/21 11/16/21 Allergies Allergy/AdvReac Type Severity Reaction Status Date / Time sulfamethazine Allergy Mild Rash/Hives Verified 11/16/21 16:31 [Sulfamethazine] Sulfa (Sulfonamide Allergy Rash/Hives Verified 11/16/21 16:31 Antibiotics) Review of Systems ROS Statement: Those systems with pertinent positive or pertinent negative responses have been documented in the HPI. ROS Other: All systems not noted in ROS Statement are negative. Past Medical History Past Medical History: GERD/Reflux, Thyroid Disorder Additional Past Medical History / Comment(s): Chronic low back pain, irritable bowel syndrome, carpal tunnel syndrome, overactive bladder, hypothyroidism. History of Any Multi-Drug Resistant Organisms: None Reported Past Surgical History: Orthopedic Surgery Additional Past Surgical History / Comment(s): BILAT CTR, COLONOSCOPY, EGD Past Anesthesia/Blood Transfusion Reactions: Motion Sickness Past Psychological History: ADD/ADHD, Anxiety, Depression Smoking Status: Current every day smoker Past Alcohol Use History: Rare Past Drug Use History: Marijuana - Past Family History Father Additional Family Medical History / Comment(s): Father is alive at age 55 with history of depression, anxiety, bipolar Mother Additional Family Medical History / Comment(s): Mother is alive at age 55 with hypoglycemia and brain aneurysm. Brother(s) Family Medical History: Cancer Additional Family Medical History / Comment(s): She has 2 brothers ONE HAD THROAT CANCER AND one had successfully committed suicide. Sister(s) Additional Family Medical History / Comment(s): She has 2 sisters with no major medical problems. General Exam Limitations: no limitations General appearance: alert, in no apparent distress Head exam: Present: atraumatic, normocephalic Eye exam: Present: normal appearance, PERRL ENT exam: Present: normal exam Neck exam: Present: normal inspection. Absent: tenderness, meningismus Respiratory exam: Present: normal lung sounds bilaterally. Absent: respiratory distress, wheezes Cardiovascular Exam: Present: regular rate, normal rhythm GI/Abdominal exam: Present: soft. Absent: distended, tenderness, guarding Extremities exam: Present: normal inspection, normal capillary refill. Absent: pedal edema, calf tenderness Neurological exam: Present: alert, oriented X3, CN II-XII intact. Absent: motor sensory deficit Psychiatric exam: Present: anxious Skin exam: Present: warm, dry, intact. Absent: cyanosis, diaphoretic Course Vital Signs 11/16/21 15:35 Temperature 97.3 F L Pulse Rate 60 Respiratory 16 Rate Blood Pressure 101/66 O2 Sat by Pulse 98 Oximetry - Reevaluation(s) Reevaluation #1: 11/16/21 16:10 Cleared for EPS. Medical Decision Making - Medical Decision Making 25 yo female presented for EPS evaluation possible placement. Patient is not suicidal or homicidal. She is calm and cooperative. After a period of observation the emergency department awaiting evaluation she decides to leave and return tomorrow. She is able to make her own decisions. She's not been petitioned. She is not suicidal. She will be discharged at this time. - Lab Data Lab Results 11/16/21 11/16/21 Range/Units 16:09 16:12 Urine HCG, Qual Not Detected (Not Detectd) Urine Opiates Screen Not Detected (NotDetected) Ur Oxycodone Screen Not Detected (NotDetected) Urine Methadone Screen Not Detected (NotDetected) Ur Propoxyphene Screen Not Detected (NotDetected) Ur Barbiturates Screen Not Detected (NotDetected) U Tricyclic Antidepress Not Detected (NotDetected) Ur Phencyclidine Scrn Not Detected (NotDetected) Ur Amphetamines Screen Not Detected (NotDetected) U Methamphetamines Scrn Not Detected (NotDetected) U Benzodiazepines Scrn Not Detected (NotDetected) Urine Cocaine Screen Not Detected (NotDetected) U Marijuana (THC) Screen Detected H (NotDetected) Disposition Clinical Impression: Depression Disposition: HOME SELF-CARE Condition: Fair Instructions (If sedation given, give patient instructions): Depression (ED) Is patient prescribed a controlled substance at d/c from ED?: No Referrals: Alma Vasquez MD [Primary Care Provider] - 1-2 days Time of Disposition: 19:37
[2021-11-16 16:28] LABS: Amphetamine Screen,Urine Not Detected (NotDetected); Barbiturate Screen,Urine Not Detected (NotDetected); Benzodiazepines Screen,Urine Not Detected (NotDetected); Cocaine Screen,Urine Not Detected (NotDetected); Methadone Screen, Urine Not Detected (NotDetected); Opiate Screen,Urine Not Detected (NotDetected); Oxycodone Screen, Urine Not Detected (NotDetected); Phencyclidine Screen,Urine Not Detected (NotDetected); Tricyclic Antidepressant,Urine Not Detected (NotDetected); Urn Cannabinoid Scrn Detected (NotDetected)
== END 2021-11-16 19:43 | disposition home or self-care (01) ==
LOC: EC 15:31
DX: F32.A Depression, unspecified (principal); K21.9 Gastro-esophageal reflux disease without esophagitis; E07.9 Disorder of thyroid, unspecified; F90.9 Attention-deficit hyperactivity disorder, unspecified type; F41.9 Anxiety disorder, unspecified; F17.200 Nicotine dependence, unspecified, uncomplicated; F12.90 Cannabis use, unspecified, uncomplicated; Z88.2 Allergy status to sulfonamides
CPT/HCPCS: 80306; 81025; 82075; 99284

== ENCOUNTER 2021-11-17 10:27 | Emergency (ER) | payer OTHER ==
[2021-11-17 10:36] VITALS: BP 96/58; PULSE 70; RESP 18; TEMP 98.9
--- NOTE | 2021-11-17 10:52 | ED ---
General Adult HPI - General Chief complaint: Psychiatric Symptoms Stated complaint: EPS eval Time Seen by Provider: 11/17/21 10:38 Source: patient Mode of arrival: ambulatory Limitations: no limitations - History of Present Illness Initial comments: Dictation was produced using [employer] dictation software. please excuse any grammatical, word or spelling errors. Chief Complaint: 25-year-old female with depression presents to the ER for evaluation for inpatient psych admission History of Present Illness: 25-year-old female she was instructed by [facility] to come to the ER to be evaluated for potential transfer to [facility] inpatient psychiatric facility. Patient states she doesn't have any medical complaints today patient not suicidal, homicidal. Denies any visual auditory hallucinations. Patient states she just feels depressed. She has had depression for 13 years. The ROS documented in this emergency department record has been reviewed and confirmed by me. Those systems with pertinent positive or negative responses have been documented in the HPI. All other systems are other negative and/or noncontributory. PHYSICAL EXAM: General Impression: Alert and oriented x3, not in acute distress HEENT: Normocephalic atraumatic, extra-ocular movements intact, pupils equal and reactive to light bilaterally, mucous membranes moist. Cardiovascular: Heart regular rate and rhythm Chest: Able to complete full sentences, no retractions, no tachypnea Musculoskeletal: Pulses present and equal in all extremities, no peripheral edema Motor: no focal deficits noted Neurological: CN II-XII grossly intact, no focal motor or sensory deficits noted Skin: Intact with no visualized rashes Psych: Normal affect and mood ED course: 25-year-old female seeking EPS evaluation for transfer to [facility] inpatient psychiatric unit. Signs upon arrival are within acceptable limits. Patient medically cleared for EPS evaluation Patient evaluated by EPS recommended discharge. Outpatient plan was discussed with patient and patient are agreeable. - Related Data Home Medications Medication Instructions Recorded Confirmed Omeprazole 20 mg PO DAILY 10/02/18 11/16/21 Mupirocin 2% Oint [Bactroban 2% 1 applic TOPICAL DAILY PRN 10/21/21 11/16/21 Oint] Simethicone [Gas-X] 125 mg PO ACHS PRN 10/21/21 11/16/21 valACYclovir [Valtrex] 500 mg PO QID PRN 10/21/21 11/16/21 Allergies Allergy/AdvReac Type Severity Reaction Status Date / Time sulfamethazine Allergy Mild Rash/Hives Verified 11/17/21 10:36 [Sulfamethazine] Sulfa (Sulfonamide Allergy Rash/Hives Verified 11/17/21 10:36 Antibiotics) Review of Systems ROS Statement: Those systems with pertinent positive or pertinent negative responses have been documented in the HPI. ROS Other: All systems not noted in ROS Statement are negative. Past Medical History Past Medical History: GERD/Reflux, Thyroid Disorder Additional Past Medical History / Comment(s): Chronic low back pain, irritable bowel syndrome, carpal tunnel syndrome, overactive bladder, hypothyroidism. History of Any Multi-Drug Resistant Organisms: None Reported Past Surgical History: Orthopedic Surgery Additional Past Surgical History / Comment(s): BILAT CTR, COLONOSCOPY, EGD Past Anesthesia/Blood Transfusion Reactions: Motion Sickness Past Psychological History: ADD/ADHD, Anxiety, Depression Smoking Status: Current every day smoker, Vaper Past Alcohol Use History: Rare Past Drug Use History: Marijuana - Past Family History Father Additional Family Medical History / Comment(s): Father is alive at age 55 with history of depression, anxiety, bipolar Mother Additional Family Medical History / Comment(s): Mother is alive at age 55 with hypoglycemia and brain aneurysm. Brother(s) Family Medical History: Cancer Additional Family Medical History / Comment(s): She has 2 brothers ONE HAD THROAT CANCER AND one had successfully committed suicide. Sister(s) Additional Family Medical History / Comment(s): She has 2 sisters with no major medical problems. General Exam Limitations: no limitations Course Vital Signs 11/17/21 10:33 Temperature 98.9 F Pulse Rate 70 Respiratory 18 Rate Blood Pressure 96/58 O2 Sat by Pulse 100 Oximetry Medical Decision Making - Lab Data Lab Results 11/17/21 11/17/21 Range/Units 11:44 11:44 Urine HCG, Qual Not Detected (Not Detectd) Urine Opiates Screen Not Detected (NotDetected) Ur Oxycodone Screen Not Detected (NotDetected) Urine Methadone Screen Not Detected (NotDetected) Ur Propoxyphene Screen Not Detected (NotDetected) Ur Barbiturates Screen Not Detected (NotDetected) U Tricyclic Antidepress Not Detected (NotDetected) Ur Phencyclidine Scrn Not Detected (NotDetected) Ur Amphetamines Screen Not Detected (NotDetected) U Methamphetamines Scrn Not Detected (NotDetected) U Benzodiazepines Scrn Not Detected (NotDetected) Urine Cocaine Screen Not Detected (NotDetected) U Marijuana (THC) Screen Detected H (NotDetected) Disposition Clinical Impression: Depression Disposition: HOME SELF-CARE Condition: Good Instructions (If sedation given, give patient instructions): Depression (ED) Is patient prescribed a controlled substance at d/c from ED?: No Referrals: Alma Vasquez MD [Primary Care Provider] - 1-2 days
[2021-11-17 12:41] LABS: Amphetamine Screen,Urine Not Detected (NotDetected); Barbiturate Screen,Urine Not Detected (NotDetected); Benzodiazepines Screen,Urine Not Detected (NotDetected); Cocaine Screen,Urine Not Detected (NotDetected); Methadone Screen, Urine Not Detected (NotDetected); Opiate Screen,Urine Not Detected (NotDetected); Oxycodone Screen, Urine Not Detected (NotDetected); Phencyclidine Screen,Urine Not Detected (NotDetected); Tricyclic Antidepressant,Urine Not Detected (NotDetected); Urn Cannabinoid Scrn Detected (NotDetected)
== END 2021-11-17 12:59 | disposition home or self-care (01) ==
LOC: EC 10:27
DX: F32.A Depression, unspecified (principal); K21.9 Gastro-esophageal reflux disease without esophagitis; E03.9 Hypothyroidism, unspecified; F17.200 Nicotine dependence, unspecified, uncomplicated; F12.90 Cannabis use, unspecified, uncomplicated; Z79.899 Other long term (current) drug therapy
CPT/HCPCS: 80306; 81025; 82075; 99284

== ENCOUNTER 2021-12-12 12:26 | Day surgery (SDC) | payer OTHER ==
[2021-12-09 10:47] VITALS: BMI 23.4
[~2021-12-12 12:26] MED LIST changes: -LACTATED RINGERS 1,000 ML IV SCH; -LIDOCAINE 1% 20 ML VIAL (10MG/ML) FOR IV START INTRADERMA PRN; +SODIUM CHLORIDE 0.9% 1,000 ML IV SCH
[2021-12-12] MEDS ORDERED: SODIUM CHLORIDE 0.9% 500 ML 500 ML IV ONE (12:31)
[2021-12-12 12:54] VITALS: BP 111/60; PULSE 65; RESP 16; TEMP 97.9
--- NOTE | 2022-01-26 14:13 | P.EPPROC ---
- EP Procedure Note Electrophysiology Procedure Note: Diagnosis Recurrent syncope Twelve-lead EKG Sinus rhythm normal [place] narrow QRS normal ST segments Normal QT interval No delta waves no epsilon waves Tilt table test protocol Baseline blood pressure 97/58 mmHg pulse rate 76 beats a minute She was tilted upright at an angle of 70 per protocol Blood pressure remained in the mid to high 90s systolic Pulse rate remained of the 70s to 80s No syncope No symptoms Impression Normal twelve-lead EKG Low-normal blood pressure No evidence for neurocardiogenic syncope
== END 2021-12-12 15:25 | disposition home or self-care (01) ==
LOC: CATHEP 12:26
PROVIDERS: ATTEND Internal Medicine Clinical Cardiac Electrophysiology
DX: R55 Syncope and collapse (principal); Z72.0 Tobacco use; Z20.822 Contact with and (suspected) exposure to COVID-19; Z82.49 Family history of ischemic heart disease and other diseases of the circulatory system; Z79.890 Hormone replacement therapy; Z79.899 Other long term (current) drug therapy
CPT/HCPCS: 81025; 87635; 93660

== ENCOUNTER → 2023-05-04 | Outpatient (CLI) | payer OTHER | END | disposition home or self-care (01) | LOC: LABPRL 11:58 | PROVIDERS: ATTEND Internal Medicine | DX: Z00.00 Encounter for general adult medical examination without abnormal findings (principal); R10.84 Generalized abdominal pain | CPT/HCPCS: 83993 ==

== ENCOUNTER 2023-06-08 13:03 | Day surgery (SDC) | payer OTHER ==
[2023-06-06 11:30] VITALS: BMI 27.3
[~2023-06-08 13:03] MED LIST changes: +LACTATED RINGERS 1,000 ML IV SCH; -SODIUM CHLORIDE 0.9% 1,000 ML IV SCH
[2023-06-08 14:04] VITALS: RESP 16; TEMP 97.6
[2023-06-08] MEDS ORDERED: LIDOCAINE 1% INJ 10MG/ML (20 ML MDV) ONE (15:39)
[2023-06-08] MEDS ORDERED: PROPOFOL 10 MG/ML 20 ML VIAL IV ONE (15:39)
--- NOTE | 2023-06-08 15:52 | P.PCN ---
Date of Procedure: 06/08/23 Procedure(s) Performed: BRIEF HISTORY: Patient is a 27-year-old, pleasant, white female scheduled for an upper endoscopy as a part of evaluation of epigastric discomfort abdominal bloating/rule out celiac disease. PROCEDURE PERFORMED: Esophagogastroduodenoscopy with biopsy. PREOPERATIVE DIAGNOSIS: Epigastric pain/abdominal bloating. IV sedation per anesthesia. PROCEDURE: After informed consent was obtained, the patient was brought into the endoscopy unit. IV sedation was administered by Anesthesia under continuous monitoring. Initially the Olympus GIF-140 video endoscope was inserted into the mouth. Esophagus intubated without any difficulty. It was gradually advanced into the stomach and duodenum and carefully examined. The bulb and the second part of the duodenum appeared normal. Multiple biopsies were done from the duodenum to rule out celiac disease. The scope at this time was withdrawn to the stomach, adequately insufflated with air, and upon careful examination, mucosa of the antrum, patchy areas of erythema consistent with gastritis and biopsies were done from this area. Mucosa of the body, cardia and the fundus appeared normal. The scope was then withdrawn into the esophagus. Small hiatal hernia noted. The GE junction was located at 36 cm from the incisors. The esoph jessica appeared normal. There were no erosions or ulcerations seen and the patient tolerated the procedure well. IMPRESSION: 1. Small hiatal hernia. 2. Mild antral gastritis. 3. Normal-appearing duodenum status post multiple biopsies to evaluate for celiac disease RECOMMENDATIONS: The findings of this examination were discussed with the patient as well as her family. She was advised to follow with the biopsy results and she'll be seen in office in 3-4 weeks..
[2023-06-08 16:23] VITALS: BP 110/60; PULSE 54
== END 2023-06-08 16:34 | disposition home or self-care (01) ==
LOC: ORWHC2ENDO 13:03
PROVIDERS: ATTEND Internal Medicine Gastroenterology
DX: K29.50 Unspecified chronic gastritis without bleeding (principal); K44.9 Diaphragmatic hernia without obstruction or gangrene; K58.9 Irritable bowel syndrome, unspecified; E03.9 Hypothyroidism, unspecified; F32.A Depression, unspecified; F41.9 Anxiety disorder, unspecified; K21.9 Gastro-esophageal reflux disease without esophagitis; F12.90 Cannabis use, unspecified, uncomplicated; F17.290 Nicotine dependence, other tobacco product, uncomplicated; Z79.890 Hormone replacement therapy; Z79.899 Other long term (current) drug therapy; Z98.890 Other specified postprocedural states; Z88.2 Allergy status to sulfonamides; Z91.011 Allergy to milk products; Z91.013 Allergy to seafood; Z91.018 Allergy to other foods
CPT/HCPCS: 81025; 88305; 43239; J2001; J2704

== ENCOUNTER → 2024-12-16 | Outpatient (CLI) | payer OTHER ==
[2024-12-16 16:00] LABS: Chol/HDL Ratio 3.18 Ratio; Glucose 85 mg/dL (70-110); LDL Cholesterol,Calculated 108.7 mg/dL (0.0-131.0); Potassium 4.2 mmol/L (3.5-5.5); Sodium 141 mmol/L (135-145); VLDL Calculation 14.68 mg/dL (5.00-40.00)
[2024-12-16 16:01] LABS: ALT 16 U/L (8-44); AST 19 U/L (13-35); Albumin 4.2 g/dL (3.8-4.9); Albumin/Globulin Ratio 1.45 Ratio (1.60-3.17); Alkaline Phosphatase 42 U/L (41-126); BUN/Creat Ratio 13.29 Ratio (12.00-20.00); Blood Urea Nitrogen 9.3 mg/dL (9.0-27.0); Calcium 9.3 mg/dL (8.7-10.3); Carbon Dioxide 25.4 mmol/L (21.6-31.8); Chloride 103 mmol/L (96-109); Globulin 2.9 g/dL (1.6-3.3); T4, Free (Free Thyroxine) 1.06 ng/dL (0.80-1.80); Total Bilirubin 0.2 mg/dL (0.3-1.2); Total Protein 7.1 g/dL (6.2-8.2)
[2024-12-16 16:10] LABS: HCT 37.5 % (37.2-46.3); HGB 12.5 g/dL (12.0-15.0); MCH 31.1 pg (27.0-32.0); MCHC 33.3 g/dL (32.0-37.0); MCV 93.3 FL (80.0-97.0); NRBC Per 100 WBC 0 X 10*3/uL (0.00-0.01); Platelet Count 371 X 10*3/uL (140-440); RBC 4.02 X 10*6/uL (4.10-5.20); RDW 11.9 % (11.5-14.5); WBC 7.21 X 10*3/uL (4.50-10.00)
[2024-12-16 16:11] LABS: Basophils # (A) 0.04 X 10*3/uL (0.00-0.10); Basophils % (A) 0.6 %; Eosinophils # (A) 0.02 X 10*3/uL (0.04-0.35); Eosinophils % (A) 0.3 %; Lymphocytes # (A) 2.52 X 10*3/uL (0.90-5.00); Monocytes # (A) 0.35 X 10*3/uL (0.20-1.00); Monocytes % (A) 4.9 %; Neutrophils # (A) 4.26 X 10*3/uL (1.80-7.70); Neutrophils % (A) 58.9 %
== END | disposition home or self-care (01) ==
LOC: LABWHC1 07:36
PROVIDERS: ATTEND Psychiatry & Neurology Psychiatry
DX: F33.2 Major depressive disorder, recurrent severe without psychotic features (principal); Z79.899 Other long term (current) drug therapy
CPT/HCPCS: 36415; 80053; 80061; 82306; 83036; 83735; 84439; 84443; 85025